=== PATIENT | female | born 1930 | race Caucasian/White ===

== ENCOUNTER 2016-11-01 15:29 | Emergency (ER) | payer MEDICARE, BC ==
[2016-11-01] MEDS ORDERED: TORAdol 30 mg Injection IM ONE (15:31)
[2016-11-01] MEDS ORDERED: Norflex 60 MG/2 ML IM ONE (15:31)
[2016-11-01] MEDS ORDERED: TORAdol 30 mg Injection ONE (15:35)
[2016-11-01] MEDS ORDERED: Norflex 60 MG/2 ML ONE (15:35)
--- NOTE | 2016-11-01 15:37 | ERPHSYRPT ---
- History of Present Illness Time Seen by Provider: 11/01/16 15:31 Source: patient, EMS Exam Limitations: no limitations Physician History: patient developed acute back pain when she got out of bed today; unable to stand due to pain; pain in Left LS area radiating to left hip; no fall; chronic back pain - different; no incontinence or change in bowel or urine Timing/Duration: today Method of Injury: unknown Quality: radiating, sharp, aching Back Pain Location: lumbar spine (left SI ) Back Pain Radiation: upper legs (left) Severity of Pain-Max: severe Severity of Pain-Current: moderate Modifying Factors: Improves With: immobilization (helps), movement ( and standing worsens) Associated Symptoms: lower back pain, No numbness in legs/feet, No weakness, No sensory/motor loss, No tingling in legs/feet Previous symptoms: different symptoms Allergies/Adverse Reactions: cefaclor [From Ceclor] Allergy (Intermediate, Verified 11/01/16 15:41) Rash Penicillins Allergy (Intermediate, Verified 11/01/16 15:41) Rash Sulfa (Sulfonamide Antibiotics) Allergy (Intermediate, Verified 11/01/16 15:41) Rash Home Medications: Amlodipine Besylate 10 mg [Norvasc 10 MG] 10 mg PO DAILY 06/24/13 [History] Aspirin EC 81 mg [Ecotrin 81 mg] 162 mg PO DAILY 06/24/13 [History] Levothyroxine Sodium 75 Mcg [Synthroid 75 Mcg] 75 mcg PO DAILY 06/24/13 [ History] Lisinopril/Hydrochlorothiazide [Lisinopril-Hctz 20-12.5 mg Tab] 1 each PO DAILY 06/24/13 [History] Magnesium Oxide 400 mg [Mag-Ox 400] 400 mg PO DAILY 06/24/13 [History] Metoprolol Succinate 50 mg PO BID 06/24/13 [History] Simvastatin 10 mg PO DAILY 05/26/16 [History] Glimepiride 4 mg [Amaryl 4 mg] 4 mg PO DAILY 11/01/16 [History] Hx Tetanus, Diphtheria Vaccination/Date Given: No Hx Influenza Vaccination/Date Given: Yes Hx Pneumococcal Vaccination/Date Given: Yes - Review of Systems Constitutional: No Symptoms Eyes: No Symptoms Ears, Nose, & Throat: No Symptoms Respiratory: No Cough, No Dyspnea, No Wheezing Cardiac: No Chest Pain, No Palpitations, No Syncope Abdominal/Gastrointestinal: No Abdominal Pain, No Nausea, No Vomiting, No Diarrhea Genitourinary Symptoms: No Symptoms Musculoskeletal: Arthralgias, Back Pain, No Fall, No Injury Skin: No Symptoms Neurological: No Symptoms Psychological: No Symptoms Endocrine: No Symptoms Hematologic/Lymphatic: No Symptoms Immunological/Allergic: No Symptoms - Past Medical History Pertinent Past Medical History: Yes Neurological History: No Pertinent History ENT History: Cataracts Cardiac History: Other Respiratory History: Bronchitis Endocrine Medical History: Diabetes Type II Musculoskeletal History: Osteoarthritis GI Medical History: Diverticulitis History: Kidney Cancer Psycho-Social History: No Pertinent History Female Reproductive Disorders: No Pertinent History Other Medical History: OPEN HEART SURGERY 2002, GALLBLADDER REMOVED; COLON SURGERIES, 1 KIDNEY, APPENDICITIS; - Past Surgical History Past Surgical History: Yes Neuro Surgical History: No Pertinent History Cardiac: CABG Respiratory: No Pertinent History Gastrointestinal: Appendectomy, Cholecystectomy, Colon Resection, Other Genitourinary: Kidney Surgery Musculoskeletal: Orthopedic Surgery Female Surgical History: Hysterectomy Other Surgical History: Ruptured colon, kidney removed, right elbow, bilateral cataract surgery - Social History Smoking Status: Never smoker Exposure to second hand smoke: No Alcohol Use: None Drug Use: none Patient Lives Alone: Yes Significant Family History: no pertinent family hx - Female History Hx Now: No - Physical Exam General Appearance: moderate distress, alert, obese Eye Exam: PERRL/EOMI, eyes nml inspection, No photophobia Ears, Nose, Throat Exam: normal ENT inspection, pharynx normal, moist mucous membranes Neck Exam: normal inspection, non-tender, supple, full range of motion, No meningismus, No JVD Respiratory Exam: normal breath sounds, lungs clear, airway intact, No chest tenderness, No respiratory distress, No crackles/rales, No rhonchi, No wheezing Cardiovascular Exam: regular rate/rhythm, normal heart sounds, normal peripheral pulses, capillary refill 2-3 sec, No murmur Gastrointestinal Exam: soft, normal bowel sounds, No tenderness, No guarding, No rebound, No organomegaly Pelvic Exam: deferred Rectal Exam: deferred Back Exam: normal inspection, No normal range of motion (decreased due to pain) , No CVA tenderness, No vertebral tenderness, No rash Extremity Exam: pelvis stable, limited range of motion ( UPPER EXTREMITY OST OP) , No normal inspection (BRAC ON RIGHT), No normal range of motion (decreased straight leg raising on left 30 degress), No elder's sign, No pedal edema (LEFT LEG DUE TO PAIN IN BACK AND RIGHT ARM DUE TO SPLINT) Peripheral Pulses: carotid (R): 4+, carotid (L): 4+, femoral (R): 4+, femoral (L ): 4+ Neurologic Exam: alert, oriented x 3, cooperative, 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 nml as tested, normal mood/affect Skin Exam: normal color, warm, dry, No rash - Course Nursing assessment & vital signs reviewed: Yes - Radiology Exams L-Spine X-ray Interpretation: Reviewed by me, Teleradiologist Report, Other (DJD and compression fx t12/L2; Sly 2 spondo L5-S1) Ordered Tests: Active Orders 24 hr Category Date Time Status LUMBAR COMPLETE (MIN 4 VIEWS) Stat Exams 11/01/16 15:31 Completed Medication Summary Discontinued Medications Generic Name Dose Route Start Last Admin Trade Name Gregoria PRN Reason Stop Dose Admin Hydromorphone HCl 1 mg 11/01/16 16:32 11/01/16 16:34 Hydromorphone 1 Mg/Ml Ampule IM 11/01/16 16:33 1 mg STAT ONE Administration Hydromorphone HCl Confirm 11/01/16 16:32 Hydromorphone 1 Mg/Ml Ampule Administered 11/01/16 16:33 Dose 1 mg .ROUTE .STK-MED ONE Hydromorphone HCl 1 mg 11/01/16 17:09 11/01/16 17:18 Hydromorphone 1 Mg/Ml Ampule IM 11/01/16 17:10 1 mg STAT ONE Administration Hydromorphone HCl Confirm 11/01/16 17:14 Hydromorphone 1 Mg/Ml Ampule Administered 11/01/16 17:15 Dose 1 mg .ROUTE .STK-MED ONE Ketorolac Tromethamine 30 mg 11/01/16 15:31 11/01/16 15:35 Toradol 30 Mg Injection IM 11/01/16 15:32 30 mg STAT ONE Administration Ketorolac Tromethamine Confirm 11/01/16 15:35 Toradol 30 Mg Injection Administered 11/01/16 15:36 Dose 30 mg .ROUTE .STK-MED ONE Methylprednisolone Acetate 40 mg 11/01/16 17:08 11/01/16 17:18 Depo-Medrol 40 Mg/Ml IM 11/01/16 17:09 40 mg STAT STA Administration Orphenadrine Citrate 60 mg 11/01/16 15:31 11/01/16 15:36 Norflex 60 Mg/2 Ml IM 11/01/16 15:32 60 mg STAT ONE Administration Orphenadrine Citrate Confirm 11/01/16 15:35 Norflex 60 Mg/2 Ml Administered 11/01/16 15:36 Dose 60 mg .ROUTE .STK-MED ONE - Progress Progress: improved, re-examined (after xr and meds) Progress Note: 11/01/16 15:37 will medicate and xr and recheck 11/01/16 16:51 miniml;a releif with meds post xrt; remedicated and more relief but still pain with; XR show DJD; Comp deformity old t12- L2; spondo L5 - S1 11/01/16 17:10 some releif with meds but uncomfortable if moves; discussed treatment plan and will give IM steroid and more pain meds and recheck 11/01/16 18:06 recheck and much improved; minimal discomfort; pain < 3/10; now; was 9/10; treatment plan and instructions given Counseled pt/family regarding: diagnosis, need for follow-up, rad results - Departure Time of Disposition: 18:07 Departure Disposition: Home Clinical Impression: Back pain at L4-L5 level, Sciatic leg pain Condition: Stable Critical Care Time: No Referrals: KAREN BRAN MD [Primary Care Provider] - Instructions: Low Back Pain Additional Instructions: Back pain instructions. Rest, ice x 24-48 hours, then warm compresses; no heavy lifting (>20#'s) x 3-5 days; call [facility] or [facility] Med doctor in am for follow up appointment and or referral as needed. Return if problems. Take meds as prescribed. Follow-up with family doctor as directed. Call for appointment. Return if any problems. If you smoke please stop. Call or follow up with your family doctor for assistance if you need it to stop. Please wear your seatbelt when driving. Have a nice day. Thank you for allowing us to participate in your care today. :o) Dr Jaime Hutson Prescriptions: Hydrocodone/Ibuprofen [Vicoprofen 200-7.5 mg Tab] 1 each PO Q8HPRN PRN #14 tablet PRN Reason: Pain Chlorzoxazone [Parafon Forte Dsc] 500 mg PO QID #20 tablet
[2016-11-01] MEDS ORDERED: Hydromorphone 1 mg/ml Ampule ONE ×2 (16:32→17:14)
[2016-11-01] MEDS ORDERED: Hydromorphone 1 mg/ml Ampule IM ONE ×2 (16:32→17:09)
--- NOTE | 2016-11-01 16:37 | XRAY ---
Indication: Acute back pain. No acute injury. Comparison: None 5 projections of the lumbar spine demonstrates 5 lumbar vertebral segments with age-related osteopenia, mild multilevel degenerative endplate spurring, and remote-appearing T12/L1 endplate compression fractures with less than 25% height loss. Greater L5-S1 degenerative disc disease with bilateral L5 spondylolysis and approximately 1.7 cm L5 spondylolisthesis. Left mid abdomen surgical clips and heavy aortoiliac calcifications. Moderate degenerative changes of the left hip with lesser degree involving the right hip. Impression: 1. Bilateral L5 spondylolysis with grade 2-3 spondylolisthesis. 2. Osteopenia and multilevel degenerative disc disease, greatest at the L5-S1 level. 3. Remote T12/L2 endplate compression fractures. 4. Additional degenerative changes of both hips and heavy vascular calcifications.
[2016-11-01] MEDS ORDERED: Depo-Medrol 40 MG/ML IM STA (17:08)
[2016-11-01 17:24] VITALS: O2SAT 94
[2016-11-01 18:45] VITALS: BP 148/69; PULSE 48
== END 2016-11-01 18:45 | disposition home or self-care (01) ==
LOC: ED 15:29
DX: M54.5 Low back pain (principal); M54.32 Sciatica, left side
CPT/HCPCS: 72110; 96372; 99284; J1030; J1170; J1885; J2360

== ENCOUNTER 2016-11-03 14:57 | Observation (INO) | payer MEDICARE, BC ==
[2016-11-03] MEDS ORDERED: TYLENOL 325 MG PO PRN (17:11)
[2016-11-03 17:24] LABS: BASOPHIL % 0.2 % (0.0-0.4); Eosinophil % 1.9 % (0.00-5.0); Granulocytes % 54.9 % (36.0-66.0); Lymphocytes % 36.3 % (24.0-44.0); Mean Cell Volume 93.7 fl (78-100); Mean Corpuscular Hemoglobin 31.7 pg (26-32); Mean Platelet Volume 9.6 fl (6-9.5); Monocytes % 6.7 % (0.0-12.0); Platelet Count 161 K/mm3 (150-450); Red Blood Count 4.41 M/mm3 (4.1-5.4); Red Cell Distribution Width 13.2 % (11.5-14.0); White Blood Count 10.1 K/mm3 (4.0-10.5)
[2016-11-03 17:38] LABS: ALBUMIN 4.1 g/dL (3.4-5.0); ANION GAP 14.2 MEQ/L (5-15); BILIRUBIN,TOTAL 0.7 mg/dL (0.2-1.0); Carbon Dioxide 25.5 mEq/L (21-32); Potassium 3.8 mEq/L (3.5-5.1); Total Protein 7.5 gm/dL (6.4-8.2)
[2016-11-03] MEDS: Sodium Chloride 0.9% 1000 ML 1,000 ML IV SCH (17:48)
[2016-11-03] MEDS ORDERED: HYDROCODONE PO PRN (18:15)
[2016-11-03] MEDS ORDERED: IBUPROFEN PO PRN (18:15)
[2016-11-03] MEDS: MORPHINE SULFATE 2 MG INJ IV PRN (18:45)
[2016-11-03 20:19] LABS: COMPLETE URINE MICROSCOPIC? YES; Collection Type CLEAN CATCH; Ph 8.5 (5-6)
[2016-11-03 20:23] LABS: Bacteria RARE /HPF (NEGATIVE); Epithelial Cells RARE /HPF (FEW); WBC 0-2 /HPF (0-5)
[2016-11-03] MEDS ORDERED: Amaryl 2 MG PO SCH (22:00)
[2016-11-03] MEDS: Colace 100 MG PO SCH (22:14)
[2016-11-03] MEDS: Zocor 10MG PO SCH (22:14)
[2016-11-03] MEDS: PATIENT OWN MEDICATION PO SCH (22:18)
[2016-11-03] MEDS: NovoLOG Insulin SQ PRN (23:00)
[2016-11-04] MEDS: MORPHINE SULFATE 2 MG INJ IV PRN ×2 (02:16→09:22)
[2016-11-04] MEDS: Glucophage 500 MG PO SCH (08:28)
[2016-11-04] MEDS: Amaryl 2 MG PO SCH ×2 (08:28→16:27)
--- NOTE | 2016-11-04 08:47 | XRAY ---
Indication: Left hip pain. No known injury. Comparison: None 2 views of the left hip obtained using portable technique demonstrates osteopenia and moderate/advanced degenerative changes as evidenced by joint space loss, sclerosis, spurring, and femur head remodeling. Query nondisplaced subcapital fracture on the AP view but not confirmed on the other view. CT is recommended.
--- NOTE | 2016-11-04 08:48 | XRAY ---
Indication: Left hip pain. Possible subcapital fracture on same day left hip radiograph. Multiple contiguous axial images obtained through both hips. Sagittal and coronal reformatted images obtained. Comparison: None Osseous structures demineralized consistent with patient's age. No acute fracture or dislocation. There is moderate to advanced degenerative changes of the left hip with joint space loss, sclerosis/spurring, subcortical cysts, femur head bony remodeling, and prominent osteophytes. Right hip demonstrates lesser moderate degenerative changes. Lower lumbar spine demonstrates L5-S1 degenerative disc disease, bilateral L5 spondylolysis, and 9 mm L5 spondylolisthesis. Visualized noncontrasted soft tissues demonstrates moderate scattered colonic fecal debris, sigmoid diverticulosis, moderate scattered vascular calcifications, and left abdominal wall ventral hernia defect with protrusion of small bowel. Impression: 1. Negative for acute fracture/dislocation. 2. Osteopenia and degenerative changes of both hips, left greater than right. 3. L5-S1 degenerative disc disease with bilateral L5 spondylolysis and grade 1 spondylolisthesis. 4. Incidental fecal stasis, sigmoid diverticulosis, and left ventral hernia defect. CT DI 46.01
[2016-11-04] MEDS: hydroDIURIL 25 MG PO SCH (09:23)
[2016-11-04] MEDS: MAG-OX 400 PO SCH (09:23)
[2016-11-04] MEDS: ENOXAPARIN SODIUM SQ SCH (09:23)
[2016-11-04] MEDS: Zestril 10 MG PO SCH (09:24)
[2016-11-04] MEDS: ECOTRIN 81 MG PO SCH (09:24)
[2016-11-04] MEDS: Toprol Xl 50 MG PO SCH (09:25)
[2016-11-04] MEDS: NORVASC 5 MG PO SCH (09:25)
[2016-11-04] MEDS: SYNTHROID 75 MCG PO SCH (09:25)
[2016-11-04] MEDS: Calcium 500MG W/Vit D Tablet PO SCH (09:25)
[2016-11-04] MEDS: Zestril 20 MG PO SCH (09:25)
[2016-11-04] MEDS: PATIENT OWN MEDICATION PO SCH ×4 (09:26→22:33)
[2016-11-04] MEDS ORDERED: CALCIUM CARBONATE PO SCH (10:00)
[2016-11-04] MEDS ORDERED: VITAMIN D3 PO SCH (10:00)
[2016-11-04] MEDS ORDERED: NON-FORMULARY ITEM (Lisinopril/Hydrochlorothiazide [Lisinopril-Hctz 20-12.5 Mg Tab] 1 EACH PO SCH (10:00)
[2016-11-04] MEDS ORDERED: NON-FORMULARY ITEM (Amlodipine Besylate 10 Mg [Norvasc 10 Mg] 10 MG) PO SCH (10:00)
[2016-11-04] MEDS: DILAUDID 1 MG/1ML PCA IV PRN (11:01)
--- NOTE | 2016-11-04 11:03 | PROG NOTE ---
DATE: 11/04/16 Chart reviewed. Events noted. At the time of this evaluation, patient is alert and awake. She states she continues to have persistent pain in her left hip. Also, complaining of pain in left lower back. She rates her pain as 8/10. Denies any numbness in leg. History of remote back injury several years ago. Reportedly, patient had also fallen at home due to her left leg giving out. States her left hip pain is constant, even at rest. VITALS: BP 159/69, heart rate 50, respiratory rate 18, temperature 97.5, O2 saturations of 94% on room air. HEENT: No pallor or icterus is noted. NECK: No JVD is present. CVS: S1 and S2 present. RESPIRATORY: Breath sounds bilaterally diminished. ABDOMEN: Obese, soft, nontender. NEURO: She is alert and awake, answers simple questions appropriately. Follows simple commands appropriately. EXTREMITIES: Reveals no edema on bilateral lower extremities. Pedal pulses are present in left lower extremity. Examination of left hip reveals tenderness, limited and very painful range of motion. Examination of lower back reveals tenderness to percussion on lumbosacral spinal and left lumbosacral paraspinal area. Lumbosacral muscle spasm is present on left. LABORATORY DATA: Labs from 11/03/16 were essentially unremarkable except CMP with creatinine of 1.43. UA had shown trace WBC, rare epithelial cells, rare bacteria, glucose 100. X-ray of left hip from last night showed joint space loss, sclerosis, spurring, and femur head remodeling. Questionable nondisplaced subcapital fracture on AP view, but not confirmed. CT scan of left hip was negative for acute fracture/dislocation. Osteopenia and degenerative changes in both hips, left greater than right. L5-S1 disc degenerative disease with bilateral L5 spondylosis and grade I spondylolisthesis. Medications were reviewed. ASSESSMENT: 85 y/o woman with impression: 1. INTRACTABLE LEFT HIP PAIN. 2. INTRACTABLE LOW BACK PAIN. 3. HISTORY OF DIABETES MELLITUS. 4. HYPERTENSION/CORONARY ARTERY DISEASE. 5. HYPOTHYROIDISM. 6. OBESITY. PLAN: 1. Patient is admitted for further monitoring and management. Patient will continue analgesics. Increase in view of persistent pain. Orthopedic consultation has been requested. PT/OT evaluations have been requested. 2. Will obtain CT scan of lumbosacral spine. 3. Addition of antibiotics for urinary tract infection. Patient's clinical condition, work-up results, and plan of management were discussed with patient and her son and [id number]. Their questions were answered in detail. They seem to be in understanding of discuss and are in agreement of current treatment plan. Discussed with patient's nurse
--- NOTE | 2016-11-04 14:00 | XRAY ---
Indication: Severe low back pain radiating to left hip. No known injury. Sagittal and axial MRI lumbar spine performed without contrast using T1 and T2 weighted sequences. Impression: None Lumbar radiograph dated November 01, 2016 documents 5 lumbar vertebral segments. Sagittal images demonstrates multilevel degenerative disc desiccation signal with L5-S1 disc space narrowing. Bilateral L5 spondylolysis with 10 mm anterolisthesis. Lower thoracic segments demonstrates multiple small Schmorl nodes. T12 and L1 superior endplates demonstrates concave deformity either remote endplate fracture versus large Schmorl node. T11 and L3 segments demonstrate large vertebral hemangiomas. Tiny L1 and multiple sacral hemangiomas. The T10 vertebral body demonstrates 12 mm round bony lesion posteriorly on the left that is low signal on T1 and T2 sequences and possibly involves the pedicle warrants additional imaging. Conus medullaris terminates at the T12 level. Axial images at the L05-Y2-S2 levels demonstrates minimal broad-based disc bulge minimally effacing the thecal sac. No disc herniation, spinal canal, or foraminal stenosis. Facets are symmetric. Sagittal images at the L2-L3 level demonstrates mild base disc bulge minimally effacing the thecal sac and producing bilateral foraminal narrowing. No focal disc herniation or canal stenosis. Axial images at the L3-L4 level demonstrates mild annular disc bulge greater towards the left. Thecal sac minimally effaced. Left foraminal stenosis and right foraminal narrowing. Slight impingement of the exiting left L3 nerve root. Mild bilateral degenerative facet and ligamentum flavum hypertrophy minimally effacing the thecal sac. Axial images at the L4-L5 level demonstrates minimal annular disc bulge minimally effacing the thecal sac and producing bilateral foraminal stenosis without impingement. No central disc herniation or canal stenosis. Minimal bilateral degenerative facet and ligamentum flavum hypertrophy. At the L5-S1 level, there is bilateral foraminal stenosis with bilateral L5 nerve root impingement due to combination of grade 1-2 spondylolisthesis and broad-based disc bulge. No disc herniation or canal stenosis. Mild bilateral degenerative facet and ligamentum flavum hypertrophy. Impression: 1. Multilevel degenerative disc disease detailed level by level. Greatest extent at L5-S1 level where there is bilateral foraminal stenosis with bilateral L5 nerve root impingement due to combination of bilateral L5 spondylolysis, grade 1-2 spondylolisthesis, and broad-based disc bulge. 2. Remaining lumbar spine negative for disc herniation or canal stenosis. 3. T10 segment bony lesion that is low signal on T1 and T2 weighting. Metastatic lesion not completely excluded in the right clinical setting. MRI thoracic spine with contrast exam may yield further information. 4. Incidental multilevel vertebral hemangiomas and multilevel thoracolumbar Schmorl nodes. T12 and L1 superior endplate concave deformities either remote endplate fracture versus large Schmorl node.
[2016-11-04] MEDS: Macrobid 100MG Capsule PO SCH (16:27)
[2016-11-04] MEDS ORDERED: Marcaine 0.5% SDV 10 ML IJ ONE (17:45)
[2016-11-04] MEDS ORDERED: Kenalog-40 IJ ONE (17:45)
[2016-11-04] MEDS: Zocor 10MG PO SCH (22:33)
[2016-11-04] MEDS: Colace 100 MG PO SCH (22:33)
[2016-11-05] MEDS ORDERED: DILAUDID 2 MG INJECTION IV PRN (00:12)
[2016-11-05] MEDS: DILAUDID 1 MG/1ML PCA IV PRN (00:29)
[2016-11-05 06:19] LABS: ANION GAP 11.9 MEQ/L (5-15); Carbon Dioxide 23.3 mEq/L (21-32); MAGNESIUM 1.7 mg/dL (1.8-2.4); TROPONIN 0.029 ng/ml (0.000-0.056)
[2016-11-05] MEDS: Macrobid 100MG Capsule PO SCH ×2 (08:15→18:19)
[2016-11-05] MEDS: Amaryl 2 MG PO SCH ×2 (08:15→18:19)
[2016-11-05] MEDS: Glucophage 500 MG PO SCH (08:15)
[2016-11-05] MEDS: NORVASC 5 MG PO SCH (10:10)
[2016-11-05] MEDS: Toprol Xl 50 MG PO SCH (10:10)
[2016-11-05] MEDS: Zestril 20 MG PO SCH (10:13)
[2016-11-05] MEDS: SYNTHROID 75 MCG PO SCH (10:13)
[2016-11-05] MEDS: ENOXAPARIN SODIUM SQ SCH (10:13)
[2016-11-05] MEDS: MAG-OX 400 PO SCH (10:13)
[2016-11-05] MEDS: hydroDIURIL 25 MG PO SCH (10:13)
[2016-11-05] MEDS: Calcium 500MG W/Vit D Tablet PO SCH (10:13)
[2016-11-05] MEDS: ECOTRIN 81 MG PO SCH (10:13)
[2016-11-05] MEDS: Zestril 10 MG PO SCH (10:13)
[2016-11-05] MEDS: PATIENT OWN MEDICATION PO SCH ×3 (10:14→18:18)
[2016-11-05] MEDS: NovoLOG Insulin SQ PRN (11:47)
[2016-11-05] MEDS: Sodium Chloride 0.9% 1000 ML 1,000 ML IV SCH (11:47)
--- NOTE | 2016-11-05 14:09 | CONS ---
CONSULT DATE: 11/04/16 CONSULTING PHYSICIAN: Dr. Martinez. CONSULTED PHYSICIAN: Dr. Morocho. REASON FOR CONSULT: Left hip pain. HISTORY OF PRESENT ILLNESS: Patient is an 85 y/o WF with sudden onset of weight-bearing pain with left-sided hip, thigh, and lumbar spine. She has got x-rays and imaging studies both of the back and the left hip that are notable for arthritis, degenerative disc disease, and some kyphosis and collapse of the lumbosacral elements and additionally a gross femoral head collapse, degeneration, loss of sphericity of the head of the femur. On exam, internal/external rotation of the hip and abduction is tolerable, but painful. Leg lengths are equal and neurovascular status is intact. Pain and tenderness palpated around the femoral acetabular articular and the upper portion of the pelvis and the SI joint is also notable. IMPRESSION: 1. 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 2. CONSIDER NERVE PINCHING OR MODIFIED SCIATICA OF THE UPPER LUMBAR SPINE SECONDARY TO ARTHRITIC RELATED SPINAL STENOSIS. 3. BLUNT TRAUMA AND REACTIVE EDEMA AND OSTEOPENIA AND OSTEOPOROSIS LEFT HEMIPELVIS. PLAN: I have injected with Kenalog and Marcaine today 2 and 3 cc each with a 3" spinal needle. The patient tolerated it well and will allow her to start to ambulate and transfer and gait as well as she can. If no better or can't handle it, will get her hip replaced and we have had a discussion about this today. Otherwise, expect blood sugars to go up a little bit and I have spoken to Monet Jensen about ambulation protocol.
[2016-11-05 16:17] VITALS: BP 153/70; PULSE 57; O2SAT 95
[2016-11-05] MEDS ORDERED: MAG-OX 400 PO ONE (17:16)
--- NOTE | 2016-11-08 09:17 | DS ---
DISCHARGE DIAGNOSES: 1) INTRACTABLE LEFT HIP PAIN, CLINICALLY IMPROVED. 2) INTRACTABLE LOW BACK PAIN, CLINICALLY IMPROVED. 3) DIABETES MELLITUS. 4) BRADYCARDIA, CLINICALLY ASYMPTOMATIC. 5) HYPERTENSION/CORONARY ARTERY DISEASE. 6) HYPOTHYROIDISM. 7) OBESITY. CONSULTANTS ON CASE: Dr. Abdirahman Morocho, Orthopedics. HOSPITAL COURSE: Poonam Bridges is an 85 year-old female with past medical history of hypertension, coronary artery disease, hypothyroidism, diabetes mellitus and back pain. She was seen by Dr. Chao in office with intractable left hip pain and was admitted for further work up and management of the same. Initially she was placed on p.o. as well as IV analgesic. Left hip x-ray from 11/03/2016 showed portable x-ray osteopenia, moderate/advanced degenerative changes as evidenced by joint space loss, sclerosis, spurring and femur head remodeling. Query nondisplaced subcapital fracture on AP view. CT scan of left hip done the same night was negative for acute fracture or dislocation, osteopenia, degenerative changes of both hips left greater than right, L5-S1 degenerative disc disease with bilateral L5 spondylosis and grade I spondylolisthesis. At the time of my evaluation yesterday the patient had also complained of persistent left hip pain and also pain in left lower back. Additional studies were ordered. Lab work up from 11/03/2016 was essentially unremarkable except CMP with creatinine 1.43. UA showed trace white blood cell, rare epithelial cells, and rare bacteria. Glucose of 100. She was placed on p.o. antibiotics. Also MRI of lumbosacral spine was obtained yesterday and that had shown multilevel degenerative disc disease greatest at L5-S1 with bilateral foraminal narrowing, bilateral L5 nerve root impingement due to combination of bilateral nerve root impingement. Remaining lumbar spine negative for disc herniation or canal stenosis. T10 segment of bony lesion with low signal questionable metastatic lesion, multilevel vertebral hemangioma and multilevel thoracolumbar Schmorl nodes. T12-L1 superior endplate concave deformities either remote endplate fracture versus large Schmorl node. The patient was evaluated by orthopedics yesterday and underwent steroid injection yesterday. With that the patient's pain had improved. Also physical therapy has been ordered. In view of above lumbar spine MRI findings, thoracic spine MRI was requested however due to this being weekend, that will not be available until 11/07/2016. Additionally last night the patient was noted to have bradycardia with heart rate in 30's on her monitor. She remained asymptomatic from that and her blood pressure had remained stable. Her [employer] was discontinued. Also beta blockers were held. Eventually her bradycardia had resolved. The rest of her course was essentially more or less unremarkable. She improved clinically. Her strength seems to be improving with current medication management. PHYSICAL EXAMINATION: At the time of this evaluation she is alert, awake and comfortable. She states her low back pain/left hip pain has improved. VITAL SIGNS: Blood pressure 153/70, heart rate 57, respiratory rate 17, temperature 97.6F. Oxygen saturation 95% on room air. HEENT: Pallor or icterus is noted. NECK: No JVD is present. CVS: S1, S2 present. RESPIRATORY: Breath sounds are bilaterally diminished and clear to auscultation. ABDOMEN: Obese, soft, nontender. NEURO: She is alert, awake, answers simple questions. EXTREMITIES: No edema on bilateral lower extremities. Limited examination of lower back reveals mild tenderness to percussion on left lumbosacral paraspinal area. Left hip movement is still somewhat painful. LABORATORY DATA AND TESTS: Labs from today showed unremarkable BMP. Magnesium is 1.7. Troponin is 0.029. Medications were reviewed. ASSESSMENT: As outlined in discharge diagnosis. PLAN: The patient was admitted with intractable low back pain, left hip pain. Her work up has been detailed above. She was evaluated by orthopedics and additional treatment. Orthopedics had recommended physical therapy which will be done as outpatient. The patient's insurance will not pay any additional days for stay here. Also the patient's information given to me by nursing and shelter case manager, the patient does not meet inpatient criteria and will need to be discharged per insurance. Will ambulate the patient. Orthopedics has advised continuation of current conservative management including physical therapy as outpatient. This has been discussed with patient. Will ambulate the patient and likely discharge home if she manages that okay. Per orthopedic recommendation we will await response to her steroid injection and additional work up/treatment will be planned as outpatient. Also as noted above, the patient's thoracic spine MRI could not be obtained and that will be scheduled as outpatient. The patient was advised to follow with that. The patient lives alone and home care is being arranged upon discharge. As noted above, the patient does not meet criteria for swing-bed at this time per shelter case manager. Please refer to discharge medication list from 11/05/2016 for details of medications on discharge. I have advised the patient to follow up with Dr. Chao in office in the next three to four days. Compliance with diet and medications were stressed. She will continue to follow up with orthopedic as well as physical therapy appointment as scheduled. She was advised to return to the Emergency [facility] if any new signs and symptoms or reappearance of previous signs and symptoms are noted. Additionally in view of the patient's bradycardia, I have discontinued the patient's beta blockers. We will continue to monitor that. As noted earlier, the patient does remain asymptomatic from that. If symptoms recur, will likely obtain additional work up and cardiology referral and work up outpatient. The patient's clinical condition, work-up results and plan of management were discussed with patient and her family. They seem to be in understanding and agreement of the same. Discussed with patient's nurse.
== END 2016-11-05 18:57 | disposition home health service (06) ==
LOC: MED SURG 14:57
PROVIDERS: ADMIT General Practice; ATTEND General Practice
DX: M25.552 Pain in left hip (principal); M54.5 Low back pain; E11.65 Type 2 diabetes mellitus with hyperglycemia; R00.1 Bradycardia, unspecified; I10 Essential (primary) hypertension; I25.810 Atherosclerosis of coronary artery bypass graft(s) without angina pectoris; E03.9 Hypothyroidism, unspecified; E66.9 Obesity, unspecified; E78.5 Hyperlipidemia, unspecified; K21.9 Gastro-esophageal reflux disease without esophagitis; I48.91 Unspecified atrial fibrillation; M15.9 Polyosteoarthritis, unspecified; M16.9 Osteoarthritis of hip, unspecified; Z79.899 Other long term (current) drug therapy
CPT/HCPCS: 82962 ×3; 93268; 81000; 36415 ×2; 83880; 83735; 85025; 80048; 80053; 84484; 73502; 73700; 72148; 97161; A9270 ×30; G0378; J1170; J1650; J2270; J3301

== ENCOUNTER 2016-11-08 08:42 | Inpatient (IN) | payer MEDICARE, BC ==
[~2016-11-08 08:42] MED LIST: ATROPINE SULFATE 1MG IJ ONE; Amidate 20 MG/10 ML IV ONE; CLINDAMYCIN-D5W 900 MG/50 ML*** 50 ML IV ONE; DILAUDID 2 MG INJECTION IV ONE; OFIRMEV 100 ML IV ONE; PHENYLEPHRINE HCL IJ ONE; Pepcid 20 MG VIAL IV ONE; Quelicin Fliptop 200 MG/10 ML IJ ONE; SUBLIMAZE 250 MCG/5 ML IJ ONE; Versed 2 MG/2 ML Injection IV ONE; Zemuron 100 MG/10 ML IJ ONE; Zofran 4 MG/2 ML VIAL IV ONE
[2016-11-08] MEDS: Lactated Ringers 1,000 ML IV SCH ×2 (09:21→22:21)
--- NOTE | 2016-11-08 10:07 | XRAY ---
Indication: Preop exam for total hip replacement. Comparison: November 03, 2016. AP pelvis and 2 views of the left hip unchanged again with osteopenia, scattered vascular calcifications, lower lumbar degenerative changes, and moderate/advanced bilateral hip degenerative changes again left greater than right. No new/acute findings.
[2016-11-08] MEDS ORDERED: PHENYLEPHRINE HCL 10 MG in Dextrose 5%/Water IV Soln. 250 ML 250 ML IV SCH (11:30)
[2016-11-08] MEDS ORDERED: Lactated Ringers 1,000 ML IV ONE (12:46)
[2016-11-08] MEDS ORDERED: SUBLIMAZE 100 MCG/2 ML ONE (13:27)
--- NOTE | 2016-11-08 14:03 | OP ---
SURGERY DATE/TIME: 11/08/2016 1050 PREOPERATIVE DIAGNOSES: 1) Left hip degenerative joint disease. 2) Intractable pain left hip. POSTOPERATIVE DIAGNOSES: 1) Left hip degenerative joint disease. 2) Intractable pain left hip. PROCEDURES: 1) Left total hip arthroplasty. 2) Long leg splint. 3) X-ray per surgeon. 4) Admit status. SURGEON: Abdirahman Morocho D.O. POLITICAL SCIENTIST: None. ANESTHESIA: General per Tan Rojas CRNA. ESTIMATED BLOOD LOSS: 100. DESCRIPTION OF PROCEDURE: The patient is taken to the operative suite and placed in supine position, given a general anesthetic, turned right side down and left side up. Sterile prep and drape done to the back. Sterile air filtration suits were used. A de oliveira bag was placed for the hip to control positioning and then a curvilinear incision over the anterior lateral portion of the hip with anterior lateral approach was done in typical Lombardo-Shaffer approach through iliotibial band through the abductor musculature reflecting this superiorly, placing of Charnley retractor. Capsulotomy performed. The femoral head was identified and was removed with an oscillating saw. The head was then removed and remanded to pathology for pathologic inspection. It measured about 46 to 48 mm in diameter but it was oblong and misshapen and deformed. We began reaming with 46 on up to 52 mm cup. The reaming was done with abduction at 45 degrees and about 5 to 20 degrees of external rotation. Once abduction of about 45 degrees and anteversion of 5 to 10 degrees we then positioned the cup for permanent titanium [place] cup placed 52 mm shell and with two separate drill holes 4.5 mm fully threaded 25 and 30 mm length screws with 10 mm liner was impacted into position and we moved on to the proximal femur. The proximal femur was then adducted forward flexed and externally rotated over a captured hip bag and trochanteric reaming box chisel and broaches up into a #8 setting, impaction with #8. Implant was performed. A +5 mm trunnion neck length femoral bipolar head was chosen. Once the reduction was obtained the hip was forward flexed, externally rotated and adducted and the closure with interrupted Ethibond and the abductor musculature, gluteus medius, gluteus minimus Ethibond in the iliotibial band, 0 Vicryl in subcutaneous layer, ck in the skin over a suction drain and abduction long leg splint applied. Finally the x-rays had been reviewed intraoperatively finding neck length of medial acetabular wall and the fill of the cortical surface of the canal of the femur. Postoperative x-rays were also compared with these and looked good.
--- NOTE | 2016-11-08 14:20 | XRAY ---
Indication: Postop exam. Comparison: Taken earlier in the day. 2 views of the left hip obtained using portable technique demonstrates interval total hip arthroplasty with intact bipolar prosthesis and 2 acetabular screws. Soft tissue changes, drainage tubing, and cutaneous ck attest to recent surgery. Stable osteopenia, scattered vascular calcifications, and inguinal surgical clips.
[2016-11-08] MEDS ORDERED: Zofran 4 MG/2 ML VIAL IV PRN (14:40)
[2016-11-08] MEDS ORDERED: NORCO 5/325 MG PO SCH (15:00)
[2016-11-08] MEDS: Morphine PCA 1 MG/ML 30 ML IV PRN (15:55)
[2016-11-08] MEDS: Macrobid 100MG Capsule PO SCH (18:01)
[2016-11-08] MEDS: CLINDAMYCIN-D5W 600 MG/50 ML*** 50 ML IV SCH (22:32)
[2016-11-08] MEDS: Zocor 10MG PO SCH (22:33)
[2016-11-08] MEDS: Colace 100 MG PO SCH (22:33)
[2016-11-08] MEDS: AMARYL 4 MG PO SCH (22:39)
[2016-11-09] MEDS: CLINDAMYCIN-D5W 600 MG/50 ML*** 50 ML IV SCH (05:31)
[2016-11-09 05:42] LABS: Mean Cell Volume 97.2 fl (78-100); Mean Platelet Volume 9.4 fl (6-9.5); Platelet Count 133 K/mm3 (150-450); Red Cell Distribution Width 13.5 % (11.5-14.0); White Blood Count 8.6 K/mm3 (4.0-10.5)
[2016-11-09 05:45] LABS: Mean Corpuscular Hemoglobin 32.1 pg (26-32)
[2016-11-09] MEDS: Morphine PCA 1 MG/ML 30 ML IV PRN ×2 (06:15→12:30)
[2016-11-09] MEDS: AMARYL 4 MG PO SCH ×2 (08:25→21:04)
[2016-11-09] MEDS: Macrobid 100MG Capsule PO SCH ×2 (08:25→17:04)
[2016-11-09] MEDS: Glucophage 500 MG PO SCH (08:28)
[2016-11-09] MEDS: hydroDIURIL 25 MG PO SCH (08:28)
[2016-11-09] MEDS: Zestril 20 MG PO SCH (08:28)
[2016-11-09] MEDS: Calcium 500MG W/Vit D Tablet PO SCH (08:28)
[2016-11-09] MEDS: ENOXAPARIN SODIUM SQ SCH (08:29)
[2016-11-09] MEDS: SYNTHROID 75 MCG PO SCH (08:29)
[2016-11-09] MEDS: NORVASC 5 MG PO SCH (08:29)
[2016-11-09] MEDS: MAG-OX 400 PO SCH (08:29)
[2016-11-09] MEDS ORDERED: NON-FORMULARY ITEM (Amlodipine Besylate 10 Mg [Norvasc 10 Mg] 10 MG) PO SCH (10:00)
[2016-11-09] MEDS ORDERED: VITAMIN D3 PO SCH (10:00)
[2016-11-09] MEDS ORDERED: Zestril 10 MG PO SCH (10:00)
[2016-11-09] MEDS ORDERED: NON-FORMULARY ITEM (Lisinopril/Hydrochlorothiazide [Lisinopril-Hctz 20-12.5 Mg Tab] 1 EACH PO SCH (10:00)
[2016-11-09] MEDS ORDERED: CALCIUM CARBONATE PO SCH (10:00)
[2016-11-09] MEDS ORDERED: NovoLOG Insulin SQ PRN (14:15)
[2016-11-09] MEDS ORDERED: PREVNAR 13 SYRINGE IM ONE (16:45)
[2016-11-09] MEDS: Lactated Ringers 1,000 ML IV SCH (17:03)
[2016-11-09] MEDS: Zocor 10MG PO SCH (21:04)
[2016-11-09] MEDS: Colace 100 MG PO SCH (21:04)
[2016-11-10] MEDS: Macrobid 100MG Capsule PO SCH ×2 (07:37→16:59)
[2016-11-10] MEDS: Lactated Ringers 1,000 ML IV SCH (07:40)
[2016-11-10] MEDS: Calcium 500MG W/Vit D Tablet PO SCH (09:23)
[2016-11-10] MEDS: NORVASC 5 MG PO SCH (09:23)
[2016-11-10] MEDS: AMARYL 4 MG PO SCH ×2 (09:24→21:25)
[2016-11-10] MEDS: Glucophage 500 MG PO SCH (09:24)
[2016-11-10] MEDS: MAG-OX 400 PO SCH (09:25)
[2016-11-10] MEDS: SYNTHROID 75 MCG PO SCH (09:25)
[2016-11-10] MEDS: hydroDIURIL 25 MG PO SCH (09:25)
[2016-11-10] MEDS: Zestril 20 MG PO SCH (09:26)
[2016-11-10] MEDS: ENOXAPARIN SODIUM SQ SCH (09:26)
[2016-11-10] MEDS ORDERED: Cleocin Phosphate IV 600 MG/4 ML IV SCH (16:15)
[2016-11-10] MEDS: CLINDAMYCIN-D5W 600 MG/50 ML*** 50 ML IV SCH ×2 (16:58→21:25)
[2016-11-10] MEDS: Morphine PCA 1 MG/ML 30 ML IV PRN (18:55)
[2016-11-10] MEDS ORDERED: NORCO 5/325 MG PO PRN (19:37)
[2016-11-10] MEDS: Colace 100 MG PO SCH (21:24)
[2016-11-10] MEDS: Zocor 10MG PO SCH (21:25)
[2016-11-10] MEDS ORDERED: Zestril 10 MG PO SCH (22:00)
[2016-11-11] MEDS: Lactated Ringers 1,000 ML IV SCH (00:38)
[2016-11-11] MEDS: CLINDAMYCIN-D5W 600 MG/50 ML*** 50 ML IV SCH (06:22)
[2016-11-11] MEDS: Macrobid 100MG Capsule PO SCH (08:32)
[2016-11-11] MEDS ORDERED: Ecotrin 325 MG PO SCH (10:00)
[2016-11-11] MEDS: SYNTHROID 75 MCG PO SCH (10:51)
[2016-11-11] MEDS: Glucophage 500 MG PO SCH (10:52)
[2016-11-11] MEDS: MAG-OX 400 PO SCH (10:52)
[2016-11-11] MEDS: NORVASC 5 MG PO SCH (10:53)
[2016-11-11] MEDS: Zestril 20 MG PO SCH (10:54)
[2016-11-11] MEDS: Calcium 500MG W/Vit D Tablet PO SCH (10:54)
[2016-11-11] MEDS: AMARYL 4 MG PO SCH (10:58)
[2016-11-11] MEDS: hydroDIURIL 25 MG PO SCH (10:58)
[2016-11-11] MEDS ORDERED: VENELEX OINTMENT TP SCH (11:15)
[2016-11-11 13:11] VITALS: BP 125/59; PULSE 67; O2SAT 94
--- NOTE | 2016-11-11 14:28 | PROG NOTE ---
DATE: 11/11/16 Chart reviewed. Events noted. At the time of this evaluation, the patient is alert, awake, and comfortable. States her left hip pain is doing fairly well. Complains of constipation. VITALS: BP 126/84, heart rate 73, respiratory rate 14, temperature 98.8, O2 saturation 92%. HEENT: Pallor present. No icterus noted. NECK: No JVD present. CVS: S1 and S2 present. RESPIRATORY: Breath sounds bilaterally diminished and clear to auscultation anteriorly. ABDOMEN: Obese, soft, nontender. NEURO: She is alert and awake. Answers simple questions. EXTREMITIES: Reveals no edema on bilateral lower extremities. Left hip area dressing present. LABORATORY DATA: There were no new labs today. ASSESSMENT: 85 y/o woman with impression: 1. DEGENERATIVE JOINT DISORDER OF LEFT HIP STATUS POST LEFT HIP ARTHROPLASTY. 2. HISTORY OF HYPERTENSION/CORONARY ARTERY DISEASE. 3. DIABETES MELLITUS. 4. LOW BACK PAIN - IMPROVED. 5. HISTORY OF HYPOTHYROIDISM. 6. HYPERLIPIDEMIA. PLAN: 1. Patient underwent scheduled surgery as noted earlier during the week. Postoperatively, she is doing fairly well. Orthopedic follow-up was noted. 2. Will continue physical therapy. 3. Continue to monitor labs. Patient is being discharged to Swing Bed today. Patient's clinical condition, work-up results, and plan of management were discussed with her. She seems to be in understanding and agreement.
--- NOTE | 2016-11-18 17:32 | PCM.DS ---
Discharge Summary Date of Admission: 11/08/16 08:42 Admitting Physician: ISAAC GILMORE Consults: Consults on Case 11/08/16 15:00 Consult Physician ROUTINE Primary Care Provider: KAREN BRAN Allergies Allergies cefaclor [From Ceclor] Allergy (Intermediate, Verified 11/08/16 09:55) Rash Penicillins Allergy (Intermediate, Verified 11/08/16 09:55) Rash Sulfa (Sulfonamide Antibiotics) Allergy (Intermediate, Verified 11/08/16 09:55) Rash atorvastatin [From Lipitor] Adverse Reaction (Verified 11/08/16 09:55) carvedilol [From Coreg] Adverse Reaction (Verified 11/08/16 09:55) rosuvastatin [From Crestor] Adverse Reaction (Verified 11/08/16 09:55) Hospital Summary - Hospital Course Hospital Course: Chief Complaint Diagnosis post op hip replacement Allergies Allergy/AdvReac Type Severity Reaction Status Date / Time cefaclor [From Ceclor] Allergy Intermediate Rash Verified 11/08/16 09:55 Penicillins Allergy Intermediate Rash Verified 11/08/16 09:55 Sulfa (Sulfonamide Allergy Intermediate Rash Verified 11/08/16 09:55 Antibiotics) atorvastatin [From Lipitor] AdvReac Verified 11/08/16 09:55 carvedilol [From Coreg] AdvReac Verified 11/08/16 09:55 rosuvastatin [From Crestor] AdvReac Verified 11/08/16 09:55 Current Medications Discontinued Medications Generic Name Dose Route Start Last Admin Trade Name Freq PRN Reason Stop Dose Admin Acetaminophen/Hydrocodone Bitart 1 tab 11/08/16 15:00 [place] 5/325 Mg PO 11/13/16 14:59 TIDPRN GIL Acetaminophen/Hydrocodone Bitart 1 tab 11/10/16 19:37 11/11/16 10:26 [place] 5/325 Mg PO 11/15/16 19:36 1 tab Q6H PRN PRN Administration PAIN Amlodipine Besylate 10 mg 11/09/16 10:00 11/11/16 10:53 Norvasc 5 Mg PO 12/09/16 09:59 10 mg DAILY GIL Administration Aspirin 325 mg 11/11/16 10:00 11/11/16 10:51 Ecotrin 325 Mg PO 12/11/16 09:59 325 mg QAM GIL Administration Atropine Sulfate 1 mg 11/08/16 08:00 Atropine Sulfate 1mg IJ 11/08/16 08:01 .STK-MED ONE Calcium Carbonate 3 tab 11/09/16 10:00 11/11/16 10:54 Calcium 500mg W/Vit D Tablet PO 12/09/16 09:59 3 tab DAILY GIL Administration Docusate Sodium 200 mg 11/08/16 22:00 11/10/16 21:24 Colace 100 Mg PO 12/08/16 21:59 200 mg HS GIL Administration Enoxaparin Sodium 30 mg 11/09/16 10:00 11/10/16 09:26 Enoxaparin Sodium SQ 12/09/16 09:59 30 mg DAILY GIL Administration Etomidate 20 mg 11/08/16 08:00 Amidate 20 Mg/10 Ml IV 11/08/16 08:01 .STK-MED ONE Famotidine 20 mg 11/08/16 08:04 11/08/16 09:21 Pepcid 20 Mg Vial IV 11/08/16 08:05 20 mg 1HRPRIOR ONE Administration Fentanyl Citrate Confirm 11/08/16 13:27 Sublimaze 100 Mcg/2 Ml Administered 11/08/16 13:28 Dose 100 mcg .ROUTE .STK-MED ONE Fentanyl Citrate 250 mcg 11/08/16 08:00 Sublimaze 250 Mcg/5 Ml IJ 11/08/16 08:01 .STK-MED ONE Glimepiride 2 mg 11/08/16 22:00 11/11/16 10:58 Amaryl 4 Mg PO 12/08/16 21:59 2 mg BID GIL Administration Hydrochlorothiazide 12.5 mg 11/09/16 10:00 11/11/16 10:58 Hydrodiuril 25 Mg PO 12/09/16 09:59 12.5 mg QAM IGL Administration Hydromorphone HCl 2 mg 11/08/16 08:00 Dilaudid 2 Mg Injection IV 11/08/16 08:01 .STK-MED ONE Lactated Ringer's 1,000 mls @ 60 mls/hr 11/08/16 08:30 11/11/16 00:38 Lactated Ringers IV 12/08/16 08:29 60 mls/hr .[id number] GIL Administration Clindamycin HCl/Dextrose 50 mls @ 100 mls/hr 11/08/16 08:06 11/08/16 09:21 Clindamycin-D5w 900 Mg/50 Ml IV 11/08/16 08:35 100 mls/hr ONCALLTOOR ONE Administration Heparin Sodium/Sodium Chloride 500 mls @ 10 mls/hr 11/08/16 11:00 11/08/16 20 :56 Heparin-Ns 1,000 Units/500 Ml IV 11/10/16 12:59 Not Given .Q24H GIL Phenylephrine HCl 10 mg/ 251 mls @ 0 mls/hr 11/08/16 11:30 Dextrose IV 12/08/16 11:29 .Q0M GIL Protocol Lactated Ringer's Confirm 11/08/16 12:46 Lactated Ringers Administered 11/08/16 12:47 Dose 1,000 mls @ ud IV .STK-MED ONE Clindamycin HCl/Dextrose 50 mls @ 100 mls/hr 11/08/16 22:00 11/09/16 05:31 Clindamycin-D5w 600 Mg/50 Ml IV 11/09/16 06:29 100 mls/hr Q8HT GIL Administration Acetaminophen 100 mls @ ud 11/08/16 08:00 Ofirmev IV 11/08/16 08:01 .STK-MED ONE Clindamycin HCl/Dextrose 50 mls @ 100 mls/hr 11/10/16 16:30 11/11/16 06:22 Clindamycin-D5w 600 Mg/50 Ml IV 12/10/16 16:29 100 mls/hr Q8HT GIL Administration Insulin Aspart 0 unit 11/09/16 14:15 11/10/16 22:09 Novolog Insulin SQ 12/09/16 14:14 4 unit UD PRN Administration HYPERGLYCEMIA Levothyroxine Sodium 75 mcg 11/09/16 10:00 11/11/16 10:51 Synthroid 75 Mcg PO 12/09/16 09:59 75 mcg DAILY GIL Administration Lisinopril 10 mg 11/09/16 10:00 11/09/16 08:29 Zestril 10 Mg PO 12/09/16 09:59 10 mg DAILY GIL Administration Lisinopril 20 mg 11/09/16 10:00 11/11/16 10:54 Zestril 20 Mg PO 12/09/16 09:59 20 mg DAILY GIL Administration Lisinopril 10 mg 11/10/16 22:00 11/10/16 21:25 Zestril 10 Mg PO 12/09/16 09:59 10 mg HS GIL Administration Magnesium Oxide 400 mg 11/09/16 10:00 11/11/16 10:52 Mag-Ox 400 PO 12/09/16 09:59 400 mg DAILY GIL Administration Metformin HCl 250 mg 11/09/16 10:00 11/11/16 10:52 Glucophage 500 Mg PO 12/09/16 09:59 250 mg DAILY GIL Administration Midazolam HCl 2 mg 11/08/16 08:00 Versed 2 Mg/2 Ml Injection IV 11/08/16 08:01 .STK-MED ONE Morphine Sulfate 0 mg 11/08/16 14:21 11/10/16 18:55 Morphine Ski Tow Operator 1 Mg/Ml 30 Ml IV 11/13/16 14:20 1 mg PRN PRN Administration Nitrofurantoin Macrocrystals 100 mg 11/08/16 18:30 11/11/16 08:32 Macrobid 100mg Capsule PO 12/08/16 18:29 100 mg BIDPC GIL Administration Ondansetron HCl 4 mg 11/08/16 14:40 Zofran 4 Mg/2 Ml Vial IV 12/08/16 14:39 Q4H PRN PRN NAUSEA Ondansetron HCl 4 mg 11/08/16 08:00 Zofran 4 Mg/2 Ml Vial IV 11/08/16 08:01 .STK-MED ONE Phenylephrine HCl 10 mg 11/08/16 08:00 Phenylephrine Hcl IJ 11/08/16 08:01 .STK-MED ONE Pneumococcal 13-Valent Conj Vacc 0.5 ml 11/09/16 16:45 11/09/16 17:18 Prevnar 13 Syringe IM 11/09/16 16:46 0.5 ml .ONCE ONE Administration Rocuronium [place] 30 mg 11/08/16 08:00 Zemuron 100 Mg/10 Ml IJ 11/08/16 08:01 .STK-MED ONE Simvastatin 10 mg 11/08/16 22:00 11/10/16 21:25 Zocor 10mg PO 12/08/16 21:59 10 mg HS GIL Administration Succinylcholine Chloride 80 mg 11/08/16 08:00 Quelicin Fliptop 200 Mg/10 Ml IJ 11/08/16 08:01 .STK-MED ONE - Vitals & Intake/Output Vital Signs: Vital Signs Temperature 98.5 F 11/11/16 12:00 Pulse Rate 67 11/11/16 12:00 Respiratory Rate 20 11/11/16 12:00 Blood Pressure 125/59 11/11/16 12:00 O2 Sat by Pulse Oximetry 94 L 11/11/16 12:00 Oxygen-Last Documented O2 Percentage 2 Liters = 28% - Lab Result Diagrams: 11/09/16 05:08 Micro Results-Entire Visit: Microbiology 11/08/16 11:04 Urine Culture - Final Urine, Void NO GROWTH - Procedures and Test Procedures and Tests throughout Hospitalization: Therapy Orders & Screens 11/08/16 08:42 PT Eval & Treat (MD Order) ROUTINE Evaluate: Yes Treat: Yes Reason for Eval:: total left hip- partial weight bearing and walker training daily Diagnosis: post op hip replacement 11/08/16 15:00 Incentive Spirometry Assessmen TID Comment: Diagnosis: post op left hip 11/09/16 07:04 Oxygen NASAL CANNULA 2 lpm Comment: Diagnosis: post op hip replacement Discharge Exam General Appearance: no apparent distress, alert Neurologic Exam: alert, oriented x 3, cooperative, normal mood/affect, nml cerebellar function, sensation nml, No motor deficits Skin Exam: normal color, warm, dry Eye Exam: PERRL, EOMI, eyes nml inspection Ears, Nose, Throat Exam: normal ENT inspection, pharynx normal, moist mucous membranes Neck Exam: normal inspection, non-tender, supple, full range of motion Respiratory Exam: normal breath sounds, lungs clear, No respiratory distress Cardiovascular Exam: regular rate/rhythm, normal heart sounds Gastrointestinal/Abdomen Exam: soft, No tenderness, No mass Extremity Exam: normal inspection, normal range of motion Back Exam: normal inspection, normal range of motion, No CVA tenderness, No vertebral tenderness Pelvic Exam: deferred Rectal Exam: deferred Final Diagnosis/Problem List - Final Discharge Diagnosis/Problem (1) Status post hip hemiarthroplasty Status: Resolved - Discharge Discharge Date: 11/11/16 Disposition: Still a Patient Condition: Stable Prescriptions: No Action Levothyroxine Sodium 75 Mcg [Synthroid 75 Mcg] 75 mcg PO DAILY Lisinopril/Hydrochlorothiazide [Lisinopril-Hctz 20-12.5 mg Tab] 1 each PO DAILY Amlodipine Besylate 10 mg [Norvasc 10 MG] 10 mg PO DAILY Magnesium Oxide 400 mg [Mag-Ox 400] 400 mg PO DAILY Simvastatin 10 mg PO HS Glimepiride 4 mg [Amaryl 4 mg] 2 mg PO BID Calcium Carbonate/Vitamin D3 [Calcium 1,000 + D3 Caplet] 1,500 mg PO DAILY Metformin HCl 500 mg [Glucophage 500 MG] 250 mg PO DAILY Docusate Sodium [Stool Softener] 200 mg PO HS Lisinopril 10 mg [Zestril 10 MG] 10 mg PO DAILY Nitrofurantoin Monohyd/M-Cryst [Macrobid 100 mg Capsule] 100 mg PO BID #12 capsule Hydrocodone Bit/Acetaminophen [[place] 7.5-325 Tablet] 1 each PO [id number] PRN # 50 tablet PRN Reason: Pain Follow up with: KAREN BRAN MD [Primary Care Provider] - 1 Week Forms: Patient Portal Information
== END 2016-11-11 14:30 | disposition swing bed (61) | DRG 470 ==
LOC: MED SURG 08:42 → EDSTATUS 13:03 → MED SURG 14:20
PROVIDERS: ADMIT Orthopaedic Surgery; ATTEND Orthopaedic Surgery
PROC: 0SRB02A Replacement of Left Hip Joint with Metal on Polyethylene Synthetic Substitute, Uncemented, Open Approach (ICD-10-PCS; principal; 2016-11-08)
PROC: 2W3MX1Z Immobilization of Left Lower Extremity using Splint (ICD-10-PCS; 2016-11-08)
DX: M16.12 Unilateral primary osteoarthritis, left hip (principal); I25.810 Atherosclerosis of coronary artery bypass graft(s) without angina pectoris; M25.552 Pain in left hip; Z96.642 Presence of left artificial hip joint; Z79.899 Other long term (current) drug therapy; E11.9 Type 2 diabetes mellitus without complications; Z79.4 Long term (current) use of insulin; E78.5 Hyperlipidemia, unspecified; E03.9 Hypothyroidism, unspecified; M54.5 Low back pain; K59.00 Constipation, unspecified; Z95.1 Presence of aortocoronary bypass graft; Z85.528 Personal history of other malignant neoplasm of kidney
CPT/HCPCS: 01214; 36415; 36620; 73502; 82962; 83036; 85027; 87086; 90670; 94760; 99100; G0009; J0330; J0461; J1170; J1650; J2250; J2270; J2370; J2405; J3010; A9270-GY

== ENCOUNTER 2016-11-11 13:51 | Inpatient (IN) | payer MEDICARE, BC ==
[2016-11-11] MEDS ORDERED: Zofran 4 MG/2 ML VIAL IV PRN (14:46)
[2016-11-11] MEDS ORDERED: Lactated Ringers 1,000 ML IV SCH (14:46)
[2016-11-11] MEDS ORDERED: Morphine PCA 1 MG/ML 30 ML IV PRN (14:46)
[2016-11-11] MEDS: VENELEX OINTMENT TP SCH ×2 (14:57→22:55)
--- NOTE | 2016-11-11 15:31 | XRAY ---
Indication: Post op hip replacement. Swelling bed. Comparison: August 24, 2014. Portable chest remains underinflated with previous CABG surgery. Enlarged cardiac silhouette again obscures the left lung base. Remaining lungs clear. Bony thorax intact again with osteopenia, degenerative changes, and old right humeral head fracture. Impression: Stable nonacute underinflated chest with chronic features.
[2016-11-11] MEDS: NORCO 5/325 MG PO PRN (16:28)
[2016-11-11] MEDS: NovoLOG Insulin SQ PRN (17:09)
[2016-11-11] MEDS ORDERED: Sodium Chloride 0.9% 10 ML FLUSH Syringe IV PRN (17:15)
[2016-11-11] MEDS: Macrobid 100MG Capsule PO SCH (18:46)
[2016-11-11] MEDS: Zocor 10MG PO SCH (22:08)
[2016-11-11] MEDS: Colace 100 MG PO SCH (22:08)
[2016-11-11] MEDS: Zestril 10 MG PO SCH (22:08)
[2016-11-11] MEDS: AMARYL 4 MG PO SCH (22:09)
[2016-11-11] MEDS: Sodium Chloride 0.9% 10 ML FLUSH Syringe IV SCH (22:10)
[2016-11-12] MEDS: NORCO 5/325 MG PO PRN ×4 (00:25→21:47)
[2016-11-12] MEDS: Sodium Chloride 0.9% 10 ML FLUSH Syringe IV SCH ×3 (05:47→21:49)
[2016-11-12] MEDS: NORVASC 5 MG PO SCH (08:36)
[2016-11-12] MEDS: MAG-OX 400 PO SCH (08:38)
[2016-11-12] MEDS: AMARYL 4 MG PO SCH ×2 (08:38→21:48)
[2016-11-12] MEDS: SYNTHROID 75 MCG PO SCH (08:38)
[2016-11-12] MEDS: Calcium 500MG W/Vit D Tablet PO SCH (08:38)
[2016-11-12] MEDS: Macrobid 100MG Capsule PO SCH (08:38)
[2016-11-12] MEDS: Glucophage 500 MG PO SCH (08:38)
[2016-11-12] MEDS: hydroDIURIL 25 MG PO SCH (08:39)
[2016-11-12] MEDS: Zestril 20 MG PO SCH (08:39)
[2016-11-12] MEDS: VENELEX OINTMENT TP SCH ×3 (08:39→21:55)
[2016-11-12] MEDS: Ecotrin 325 MG PO SCH (08:39)
[2016-11-12] MEDS: NovoLOG Insulin SQ PRN ×2 (16:58→21:49)
[2016-11-12] MEDS: Colace 100 MG PO SCH (21:47)
[2016-11-12] MEDS: Zocor 10MG PO SCH (21:47)
[2016-11-12] MEDS: Zestril 10 MG PO SCH (21:47)
[2016-11-13] MEDS: NORCO 5/325 MG PO PRN ×3 (06:55→20:02)
[2016-11-13] MEDS: Sodium Chloride 0.9% 10 ML FLUSH Syringe IV SCH ×3 (06:55→22:23)
[2016-11-13] MEDS: Glucophage 500 MG PO SCH (07:57)
[2016-11-13] MEDS: AMARYL 4 MG PO SCH ×2 (07:58→22:23)
[2016-11-13] MEDS: Zestril 20 MG PO SCH (07:58)
[2016-11-13] MEDS: Calcium 500MG W/Vit D Tablet PO SCH (07:58)
[2016-11-13] MEDS: Ecotrin 325 MG PO SCH (07:59)
[2016-11-13] MEDS: hydroDIURIL 25 MG PO SCH (07:59)
[2016-11-13] MEDS: SYNTHROID 75 MCG PO SCH (07:59)
[2016-11-13] MEDS: NORVASC 5 MG PO SCH (07:59)
[2016-11-13] MEDS: VENELEX OINTMENT TP SCH ×3 (08:00→22:50)
[2016-11-13] MEDS: MAG-OX 400 PO SCH (08:04)
[2016-11-13] MEDS: NovoLOG Insulin SQ PRN (11:28)
[2016-11-13] MEDS: Colace 100 MG PO SCH (22:22)
[2016-11-13] MEDS: Zestril 10 MG PO SCH (22:23)
[2016-11-13] MEDS: Zocor 10MG PO SCH (22:23)
[2016-11-14] MEDS: NORCO 5/325 MG PO PRN ×4 (02:17→22:16)
[2016-11-14] MEDS: hydroDIURIL 25 MG PO SCH (10:04)
[2016-11-14] MEDS: Calcium 500MG W/Vit D Tablet PO SCH (10:05)
[2016-11-14] MEDS: MAG-OX 400 PO SCH (10:05)
[2016-11-14] MEDS: Zestril 20 MG PO SCH (10:06)
[2016-11-14] MEDS: Glucophage 500 MG PO SCH (10:06)
[2016-11-14] MEDS: SYNTHROID 75 MCG PO SCH (10:06)
[2016-11-14] MEDS: Ecotrin 325 MG PO SCH (10:06)
[2016-11-14] MEDS: NORVASC 5 MG PO SCH (10:06)
[2016-11-14] MEDS: VENELEX OINTMENT TP SCH ×3 (11:12→21:23)
[2016-11-14] MEDS: AMARYL 4 MG PO SCH ×2 (11:12→21:22)
--- NOTE | 2016-11-14 13:08 | PCM.NOTE ---
Date and Time: 11/14/16 1307 Subjective Assessment: doing better - Review of Systems Constitutional: No Fever, No Chills Eyes: No Symptoms Ears, Nose, & Throat: No Symptoms Respiratory: No Cough, No Short Of Breath Cardiac: No Chest Pain, No Edema, No Syncope Abdominal/Gastrointestinal: No Abdominal Pain, No Nausea, No Vomiting, No Diarrhea Genitourinary Symptoms: No Dysuria Musculoskeletal: No Back Pain, No Neck Pain Skin: No Rash Neurological: No Dizziness, No Focal Weakness, No Sensory Changes Psychological: No Symptoms Endocrine: No Symptoms Hematologic/Lymphatic: No Symptoms Immunological/Allergic: No Symptoms Objective Exam General Appearance: no apparent distress, alert Neurologic Exam: alert, oriented x 3, cooperative, normal mood/affect, nml cerebellar function, sensation nml, No motor deficits Skin Exam: normal color, warm, dry Eye Exam: PERRL, EOMI, eyes nml inspection Ears, Nose, Throat Exam: normal ENT inspection, pharynx normal, moist mucous membranes Neck Exam: normal inspection, non-tender, supple, full range of motion Respiratory Exam: normal breath sounds, lungs clear, No respiratory distress Cardiovascular Exam: regular rate/rhythm, normal heart sounds Gastrointestinal/Abdomen Exam: soft, No tenderness, No mass Extremity Exam: normal inspection, normal range of motion Back Exam: normal inspection, normal range of motion, No CVA tenderness, No vertebral tenderness Pelvic Exam: deferred Rectal Exam: deferred OBJECTIVE DATA Vital Signs: Vital Signs - 24 hr Temp Pulse Resp BP Pulse Ox 11/14/16 10:06 97.8 F 68 20 144/67 98 11/13/16 20:00 98.7 F 83 24 147/67 96 Pain Assessment - Last Documented Pain Intensity 3 Pain Scale Used 0-10 Pain Scale Intake and Output: Intake & Output 11/12/16 11/13/16 11/14/16 11/15/16 11:59 11:59 11:59 11:59 Intake Total 740 1480 1880 Balance 740 1480 1880 Weight 75.75 kg Lab Results: Accuchecks Date 11/14/16 Date 11/13/16 Time 07:30 Time 17:19 Accucheck Value: 78 Accucheck Value: 224 Accucheck Value: 109 Assessment/Plan (1) S/P hip replacement Current Visit: Yes Status: Acute Qualifiers: Laterality: left Qualified Code(s): Z96.642 - Presence of left artificial hip joint Code(s): Z96.649 - PRESENCE OF UNSPECIFIED ARTIFICIAL HIP JOINT (2) Status post hip hemiarthroplasty Current Visit: Yes Status: Acute Code(s): Z96.649 - PRESENCE OF UNSPECIFIED ARTIFICIAL HIP JOINT
[2016-11-14] MEDS: NovoLOG Insulin SQ PRN (14:08)
[2016-11-14] MEDS: Sodium Chloride 0.9% 10 ML FLUSH Syringe IV SCH ×3 (16:05→21:24)
[2016-11-14] MEDS: Zocor 10MG PO SCH (21:22)
[2016-11-14] MEDS: Zestril 10 MG PO SCH (21:22)
[2016-11-14] MEDS: Colace 100 MG PO SCH (21:22)
[2016-11-15] MEDS: NORCO 5/325 MG PO PRN ×4 (04:43→23:38)
[2016-11-15] MEDS: Sodium Chloride 0.9% 10 ML FLUSH Syringe IV SCH ×3 (05:32→22:18)
[2016-11-15] MEDS: SYNTHROID 75 MCG PO SCH (09:39)
[2016-11-15] MEDS: Ecotrin 325 MG PO SCH (09:39)
[2016-11-15] MEDS: Calcium 500MG W/Vit D Tablet PO SCH (09:39)
[2016-11-15] MEDS: NORVASC 5 MG PO SCH (09:39)
[2016-11-15] MEDS: hydroDIURIL 25 MG PO SCH (09:39)
[2016-11-15] MEDS: Glucophage 500 MG PO SCH (09:40)
[2016-11-15] MEDS: AMARYL 4 MG PO SCH ×2 (09:40→22:17)
[2016-11-15] MEDS: MAG-OX 400 PO SCH (09:40)
[2016-11-15] MEDS: Zestril 20 MG PO SCH (09:40)
[2016-11-15] MEDS: VENELEX OINTMENT TP SCH ×2 (09:41→14:33)
--- NOTE | 2016-11-15 11:31 | PCM.NOTE ---
Date and Time: 11/15/16 1130 Subjective Assessment: doing better - Review of Systems Constitutional: No Fever, No Chills Eyes: No Symptoms Ears, Nose, & Throat: No Symptoms Respiratory: No Cough, No Short Of Breath Cardiac: No Chest Pain, No Edema, No Syncope Abdominal/Gastrointestinal: No Abdominal Pain, No Nausea, No Vomiting, No Diarrhea Genitourinary Symptoms: No Dysuria Musculoskeletal: No Back Pain, No Neck Pain Skin: No Rash Neurological: No Dizziness, No Focal Weakness, No Sensory Changes Psychological: No Symptoms Endocrine: No Symptoms Hematologic/Lymphatic: No Symptoms Immunological/Allergic: No Symptoms Objective Exam General Appearance: no apparent distress, alert Neurologic Exam: alert, oriented x 3, cooperative, normal mood/affect, nml cerebellar function, sensation nml, No motor deficits Skin Exam: normal color, warm, dry Eye Exam: PERRL, EOMI, eyes nml inspection Ears, Nose, Throat Exam: normal ENT inspection, pharynx normal, moist mucous membranes Neck Exam: normal inspection, non-tender, supple, full range of motion Respiratory Exam: normal breath sounds, lungs clear, No respiratory distress Cardiovascular Exam: regular rate/rhythm, normal heart sounds Gastrointestinal/Abdomen Exam: soft, No tenderness, No mass Extremity Exam: normal inspection, normal range of motion Back Exam: normal inspection, normal range of motion, No CVA tenderness, No vertebral tenderness Pelvic Exam: deferred Rectal Exam: deferred OBJECTIVE DATA Vital Signs: Vital Signs - 24 hr Temp Pulse Resp BP Pulse Ox 11/15/16 11:19 98.6 F 11/15/16 08:04 98.6 F 70 20 139/65 97 11/14/16 19:58 97.4 F 70 19 134/60 94 L Pain Assessment - Last Documented Pain Intensity 3 Pain Scale Used 0-10 Pain Scale Intake and Output: Intake & Output 11/12/16 11/13/16 11/14/16 11/15/16 11:59 11:59 11:59 11:59 Intake Total 740 1480 1880 1540 Balance 740 1480 1880 1540 Weight 75.75 kg Lab Results: Accuchecks Date 11/15/16 Date 11/14/16 Date 11/14/16 Time 07:30 Time 22:00 Time 16:30 Accucheck Value: 97 Accucheck Value: 270 Accucheck Value: 155 Multi-Disciplinary Progress Notes: Multi-Disciplinary Progress Notes 11/14/16 13:07 Physical Therapy Note by Monet Jensen PATIENT TO P.T. DEPT THIS A.M GOOD TOLERANCE OF PARALLEL BAR STANDING ACTIVITIES: FORWARD/RETRO WALK AND SIDE TO SIDE WALK. LIFT-TOUCH LLE TO STEP A/ P AND LATERAL 10 REPS EACH. STANDING HEEL RAISES AND QTR SQUATS 10 REPS EACH. SUPINE EXERCISE ON MAT HIP FLEXION AND ABDUCTION, SAQ'S; SITTING HEEL RAISES AND TOE TAPS. DRESSING CHANGED TO TRANSPARENT FILM LEFT HIP - MAURISIO STILL IN PLACE; WOUND WELL APPROXIMATED AND DRY. Initialized on 11/14/16 13:07 - END OF NOTE Assessment/Plan (1) S/P hip replacement Current Visit: Yes Status: Acute Qualifiers: Laterality: left Qualified Code(s): Z96.642 - Presence of left artificial hip joint Code(s): Z96.649 - PRESENCE OF UNSPECIFIED ARTIFICIAL HIP JOINT (2) Status post hip hemiarthroplasty Current Visit: Yes Status: Acute Code(s): Z96.649 - PRESENCE OF UNSPECIFIED ARTIFICIAL HIP JOINT
[2016-11-15] MEDS ORDERED: TORAdol 30 mg Injection IM PRN (11:39)
[2016-11-15] MEDS: NovoLOG Insulin SQ PRN (13:07)
[2016-11-15] MEDS: Colace 100 MG PO SCH (22:18)
[2016-11-15] MEDS: Zestril 10 MG PO SCH (22:20)
[2016-11-15] MEDS: Zocor 10MG PO SCH (22:20)
[2016-11-15] MEDS: TORAdol 30 mg Injection IM SCH (22:51)
[2016-11-16] MEDS: VENELEX OINTMENT TP SCH ×4 (00:46→22:19)
[2016-11-16] MEDS: Sodium Chloride 0.9% 10 ML FLUSH Syringe IV SCH ×3 (06:14→22:21)
[2016-11-16] MEDS: Calcium 500MG W/Vit D Tablet PO SCH (10:04)
[2016-11-16] MEDS: Zestril 20 MG PO SCH (10:04)
[2016-11-16] MEDS: NORVASC 5 MG PO SCH (10:04)
[2016-11-16] MEDS: hydroDIURIL 25 MG PO SCH (10:05)
[2016-11-16] MEDS: MAG-OX 400 PO SCH (10:05)
[2016-11-16] MEDS: AMARYL 4 MG PO SCH ×2 (10:05→22:27)
[2016-11-16] MEDS: SYNTHROID 75 MCG PO SCH (10:05)
[2016-11-16] MEDS: Ecotrin 325 MG PO SCH (10:05)
[2016-11-16] MEDS: Glucophage 500 MG PO SCH (10:05)
[2016-11-16] MEDS: NORCO 5/325 MG PO PRN ×2 (10:23→22:15)
[2016-11-16] MEDS: NovoLOG Insulin SQ PRN (12:44)
--- NOTE | 2016-11-16 20:02 | PCM.NOTE ---
Date and Time: 11/16/162000 Subjective Assessment: doing better - Review of Systems Constitutional: No Fever, No Chills Eyes: No Symptoms Ears, Nose, & Throat: No Symptoms Respiratory: No Cough, No Short Of Breath Cardiac: No Chest Pain, No Edema, No Syncope Abdominal/Gastrointestinal: No Abdominal Pain, No Nausea, No Vomiting, No Diarrhea Genitourinary Symptoms: No Dysuria Musculoskeletal: No Back Pain, No Neck Pain Skin: No Rash Neurological: No Dizziness, No Focal Weakness, No Sensory Changes Psychological: No Symptoms Endocrine: No Symptoms Hematologic/Lymphatic: No Symptoms Immunological/Allergic: No Symptoms Objective Exam General Appearance: no apparent distress, alert Neurologic Exam: alert, oriented x 3, cooperative, normal mood/affect, nml cerebellar function, sensation nml, No motor deficits Skin Exam: normal color, warm, dry Eye Exam: PERRL, EOMI, eyes nml inspection Ears, Nose, Throat Exam: normal ENT inspection, pharynx normal, moist mucous membranes Neck Exam: normal inspection, non-tender, supple, full range of motion Respiratory Exam: normal breath sounds, lungs clear, No respiratory distress Cardiovascular Exam: regular rate/rhythm, normal heart sounds Gastrointestinal/Abdomen Exam: soft, No tenderness, No mass Extremity Exam: normal inspection, normal range of motion Back Exam: normal inspection, normal range of motion, No CVA tenderness, No vertebral tenderness Pelvic Exam: deferred Rectal Exam: deferred OBJECTIVE DATA Vital Signs: Vital Signs - 24 hr Temp Pulse Resp BP Pulse Ox 11/16/16 07:51 97.9 F 60 18 157/68 97 Pain Assessment - Last Documented Pain Intensity 0 Pain Scale Used 0-10 Pain Scale Intake and Output: Intake & Output 11/14/16 11/15/16 11/16/16 11/17/16 11:59 11:59 11:59 11:59 Intake Total 1880 1540 1470 880 Balance 1880 1540 1470 880 Weight 75.75 kg Lab Results: Accuchecks Date 11/15/16 Time 22:00 Accucheck Value: 132 Accucheck Value: 223 Accucheck Value: 97 Accucheck Value: 169 Assessment/Plan (1) S/P hip replacement Current Visit: Yes Status: Acute Qualifiers: Laterality: left Qualified Code(s): Z96.642 - Presence of left artificial hip joint Assessment & Plan: continue present management Code(s): Z96.649 - PRESENCE OF UNSPECIFIED ARTIFICIAL HIP JOINT (2) Status post hip hemiarthroplasty Current Visit: Yes Status: Acute Code(s): Z96.649 - PRESENCE OF UNSPECIFIED ARTIFICIAL HIP JOINT
[2016-11-16] MEDS: Colace 100 MG PO SCH (22:14)
[2016-11-16] MEDS: Zestril 10 MG PO SCH (22:15)
[2016-11-16] MEDS: TORAdol 30 mg Injection IM SCH (22:16)
[2016-11-16] MEDS: Zocor 10MG PO SCH (22:19)
[2016-11-17] MEDS: Sodium Chloride 0.9% 10 ML FLUSH Syringe IV SCH (06:09)
[2016-11-17] MEDS: NORCO 5/325 MG PO PRN ×3 (07:24→23:55)
[2016-11-17] MEDS: NORVASC 5 MG PO SCH (09:20)
[2016-11-17] MEDS: hydroDIURIL 25 MG PO SCH (09:20)
[2016-11-17] MEDS: Ecotrin 325 MG PO SCH (09:21)
[2016-11-17] MEDS: AMARYL 4 MG PO SCH ×2 (09:21→22:00)
[2016-11-17] MEDS: Calcium 500MG W/Vit D Tablet PO SCH (09:21)
[2016-11-17] MEDS: Glucophage 500 MG PO SCH (09:22)
[2016-11-17] MEDS: MAG-OX 400 PO SCH (09:22)
[2016-11-17] MEDS: SYNTHROID 75 MCG PO SCH (09:22)
[2016-11-17] MEDS: Zestril 20 MG PO SCH (09:23)
[2016-11-17] MEDS: VENELEX OINTMENT TP SCH ×3 (09:23→21:47)
[2016-11-17] MEDS: NovoLOG Insulin SQ PRN ×2 (11:46→22:16)
--- NOTE | 2016-11-17 12:25 | PCM.NOTE ---
Date and Time: 11/17/16 1224 Subjective Assessment: doing better - Review of Systems Constitutional: No Fever, No Chills Eyes: No Symptoms Ears, Nose, & Throat: No Symptoms Respiratory: No Cough, No Short Of Breath Cardiac: No Chest Pain, No Edema, No Syncope Abdominal/Gastrointestinal: No Abdominal Pain, No Nausea, No Vomiting, No Diarrhea Genitourinary Symptoms: No Dysuria Musculoskeletal: No Back Pain, No Neck Pain Skin: No Rash Neurological: No Dizziness, No Focal Weakness, No Sensory Changes Psychological: No Symptoms Endocrine: No Symptoms Hematologic/Lymphatic: No Symptoms Immunological/Allergic: No Symptoms Objective Exam General Appearance: no apparent distress, alert Neurologic Exam: alert, oriented x 3, cooperative, normal mood/affect, nml cerebellar function, sensation nml, No motor deficits Skin Exam: normal color, warm, dry Eye Exam: PERRL, EOMI, eyes nml inspection Ears, Nose, Throat Exam: normal ENT inspection, pharynx normal, moist mucous membranes Neck Exam: normal inspection, non-tender, supple, full range of motion Respiratory Exam: normal breath sounds, lungs clear, No respiratory distress Cardiovascular Exam: regular rate/rhythm, normal heart sounds Gastrointestinal/Abdomen Exam: soft, No tenderness, No mass Extremity Exam: normal inspection, normal range of motion Back Exam: normal inspection, normal range of motion, No CVA tenderness, No vertebral tenderness Pelvic Exam: deferred Rectal Exam: deferred OBJECTIVE DATA Vital Signs: Vital Signs - 24 hr Temp Pulse Resp BP Pulse Ox 11/17/16 07:18 97.7 F 80 20 136/70 97 Pain Assessment - Last Documented Pain Intensity 2 Pain Scale Used 0-10 Pain Scale Intake and Output: Intake & Output 11/15/16 11/16/16 11/17/16 11/18/16 11:59 11:59 11:59 11:59 Intake Total 1540 1470 1320 360 Balance 1540 1470 1320 360 Weight 75.75 kg Lab Results: Accuchecks Date 11/16/16 Time 22:00 Accucheck Value: 288 Accucheck Value: 79 Accucheck Value: 127 Accucheck Value: 132 Assessment/Plan (1) S/P hip replacement Current Visit: Yes Status: Acute Qualifiers: Laterality: left Qualified Code(s): Z96.642 - Presence of left artificial hip joint Assessment & Plan: doing better Code(s): Z96.649 - PRESENCE OF UNSPECIFIED ARTIFICIAL HIP JOINT (2) Status post hip hemiarthroplasty Current Visit: Yes Status: Acute Code(s): Z96.649 - PRESENCE OF UNSPECIFIED ARTIFICIAL HIP JOINT
[2016-11-17 21:01] VITALS: O2SAT 96
[2016-11-17] MEDS: Zocor 10MG PO SCH (22:00)
[2016-11-17] MEDS: Colace 100 MG PO SCH (22:00)
[2016-11-17] MEDS: Zestril 10 MG PO SCH (22:00)
[2016-11-17] MEDS: TORAdol 30 mg Injection IM SCH (22:02)
[2016-11-18 07:45] VITALS: BP 118/55; PULSE 74
[2016-11-18] MEDS: Zestril 20 MG PO SCH (10:20)
[2016-11-18] MEDS: Glucophage 500 MG PO SCH (10:20)
[2016-11-18] MEDS: MAG-OX 400 PO SCH (10:20)
[2016-11-18] MEDS: Ecotrin 325 MG PO SCH (10:21)
[2016-11-18] MEDS: SYNTHROID 75 MCG PO SCH (10:21)
[2016-11-18] MEDS: hydroDIURIL 25 MG PO SCH (10:21)
[2016-11-18] MEDS: AMARYL 4 MG PO SCH (10:22)
[2016-11-18] MEDS: NORVASC 5 MG PO SCH (10:22)
[2016-11-18] MEDS: Calcium 500MG W/Vit D Tablet PO SCH (10:26)
[2016-11-18] MEDS: VENELEX OINTMENT TP SCH (10:32)
--- NOTE | 2016-11-18 17:21 | PCM.DS ---
Discharge Summary Date of Admission: 11/11/16 14:30 Date of Discharge: 11/18/2016 Admitting Physician: NOHEMY KWON Primary Care Provider: KAREN BRAN Allergies Allergies cefaclor [From Ceclor] Allergy (Intermediate, Verified 11/08/16 09:55) Rash Penicillins Allergy (Intermediate, Verified 11/08/16 09:55) Rash Sulfa (Sulfonamide Antibiotics) Allergy (Intermediate, Verified 11/08/16 09:55) Rash atorvastatin [From Lipitor] Adverse Reaction (Verified 11/08/16 09:55) carvedilol [From Coreg] Adverse Reaction (Verified 11/08/16 09:55) rosuvastatin [From Crestor] Adverse Reaction (Verified 11/08/16 09:55) Hospital Summary - Hospital Course Hospital Course: Chief Complaint Diagnosis Deconditioning r/t total left hip replacement Allergies Allergy/AdvReac Type Severity Reaction Status Date / Time cefaclor [From Ceclor] Allergy Intermediate Rash Verified 11/08/16 09:55 Penicillins Allergy Intermediate Rash Verified 11/08/16 09:55 Sulfa (Sulfonamide Allergy Intermediate Rash Verified 11/08/16 09:55 Antibiotics) atorvastatin [From Lipitor] AdvReac Verified 11/08/16 09:55 carvedilol [From Coreg] AdvReac Verified 11/08/16 09:55 rosuvastatin [From Crestor] AdvReac Verified 11/08/16 09:55 Vital Signs (Last 24 hours) Temp Pulse Resp BP Pulse Ox 11/18/16 07:44 97.8 F 74 20 118/55 96 11/17/16 20:00 98.0 F 65 18 116/54 96 Home Medications Medication Instructions Recorded Confirmed Last Taken Type Hydrocodone Bit/Acetaminophen 1 each PO [id number] PRN #50 tablet 11/18/16 Unknown Rx [[place] 7.5-325 Tablet] Current Medications Discontinued Medications Generic Name Dose Route Start Last Admin Trade Name Freq PRN Reason Stop Dose Admin Acetaminophen/Hydrocodone Bitart 1 tab 11/11/16 14:46 11/17/16 23:55 [place] 5/325 Mg PO 11/21/16 12:00 1 tab Q6H PRN PRN Administration PAIN Amlodipine Besylate 10 mg 11/11/16 14:46 11/18/16 10:22 Norvasc 5 Mg PO 12/09/16 09:59 10 mg DAILY GIL Administration Aspirin 325 mg 11/11/16 14:46 11/18/16 10:21 Ecotrin 325 Mg PO 12/11/16 09:59 325 mg QAM GIL Administration Calcium Carbonate 3 tab 11/11/16 14:46 11/18/16 10:26 Calcium 500mg W/Vit D Tablet PO 12/09/16 09:59 3 tab DAILY GIL Administration Docusate Sodium 200 mg 11/11/16 14:46 11/17/16 22:00 Colace 100 Mg PO 12/08/16 21:59 200 mg HS GIL Administration Glimepiride 2 mg 11/11/16 14:46 11/18/16 10:22 Amaryl 4 Mg PO 12/08/16 21:59 2 mg BID GIL Administration Hydrochlorothiazide 12.5 mg 11/11/16 14:46 11/18/16 10:21 Hydrodiuril 25 Mg PO 12/09/16 09:59 12.5 mg QAM GIL Administration Lactated Ringer's 1,000 mls @ 60 mls/hr 11/11/16 14:46 Lactated Ringers IV 12/08/16 08:29 .[id number] GIL Insulin Aspart 0 unit 11/11/16 14:46 11/17/16 22:16 Novolog Insulin SQ 12/09/16 14:14 4 unit UD PRN Administration HYPERGLYCEMIA Ketorolac Tromethamine 30 mg 11/15/16 11:39 11/15/16 15:24 Toradol 30 Mg Injection IM 11/20/16 12:09 30 mg 1XONLY PRN Administration PAIN Ketorolac Tromethamine 30 mg 11/15/16 22:00 11/17/16 22:02 Toradol 30 Mg Injection IM 11/20/16 21:59 30 mg HS GIL Administration Levothyroxine Sodium 75 mcg 11/11/16 14:46 11/18/16 10:21 Synthroid 75 Mcg PO 12/09/16 09:59 75 mcg DAILY GIL Administration Lisinopril 20 mg 11/11/16 14:46 11/18/16 10:20 Zestril 20 Mg PO 12/09/16 09:59 20 mg DAILY GIL Administration Lisinopril 10 mg 11/11/16 14:46 11/17/16 22:00 Zestril 10 Mg PO 12/09/16 09:59 10 mg HS GIL Administration Magnesium Oxide 400 mg 11/11/16 14:46 11/18/16 10:20 Mag-Ox 400 PO 12/09/16 09:59 400 mg DAILY GIL Administration Metformin HCl 250 mg 11/11/16 14:46 11/18/16 10:20 Glucophage 500 Mg PO 12/09/16 09:59 250 mg DAILY GIL Administration Morphine Sulfate 0 mg 11/11/16 14:46 11/11/16 15:02 Morphine Perfect Binder Setter 1 Mg/Ml 30 Ml IV 11/13/16 14:20 1 mg PRN PRN Administration Nitrofurantoin Macrocrystals 100 mg 11/11/16 14:46 11/12/16 08:38 Macrobid 100mg Capsule PO 11/12/16 10:00 100 mg BIDPC GIL Administration Ondansetron HCl 4 mg 11/11/16 14:46 Zofran 4 Mg/2 Ml Vial IV 12/08/16 14:39 Q4H PRN PRN NAUSEA Simvastatin 10 mg 11/11/16 14:46 11/17/16 22:00 Zocor 10mg PO 12/08/16 21:59 10 mg HS GIL Administration Sodium Chloride 10 ml 11/11/16 22:00 11/17/16 06:09 Sodium Chloride 0.9% 10 Ml Flush Syringe IV 12/11/16 21:59 10 ml Q8HT GIL Administration Sodium Chloride 10 ml 11/11/16 17:15 Sodium Chloride 0.9% 10 Ml Flush Syringe IV 12/11/16 17:14 PRN PRN Intake & Output (Last 24 hours) 11/16/16 11/17/16 11/18/16 11/19/16 11:59 11:59 11:59 11:59 Intake Total 1470 1320 1960 Balance 1470 1320 1960 Weight 75.75 kg Orders (Last 24 hours) Category Date Time Status Miscellaneous Nursing Order ROUTINE Care 11/18/16 09:48 Active Discharge Routine Discharge 11/18/16 09:35 Ordered Discharge/Telephone Order Routine Discharge 11/18/16 09:35 Active Patient Care Notes (Last 24 hours) 11/18/16 10:21 Nursing Note by Brigitte Wylie ck removed from left hip, noted small suture embedded in incision. attempted to remove but unable to get tweezers or scissors under suture. left area open and steri strips placed around where suture is. informed pt and daughter and son that there was a suture still in place that will need to be removed by Dr Gilmore on follow up visit d/t so embedded into skin and skin had healed and grown around area. Informed pt nurse Initialized on 11/18/16 10:21 - END OF NOTE 11/18/16 10:00 (created 11/18/16 15:01) Case Management Note by Peyton Chen MD ORDER TO DC HOME TODAY WITH [facility]. FAMILY PRESENT AT BEDSIDE AND AWARE OF DC ORDERS. CALL TO [facility] TO REPORT DISCHARGE, SPOKE WITH MAIRA, FAXED DC ORDERS. Initialized on 11/18/16 15:01 - END OF NOTE - Vitals & Intake/Output Vital Signs: Vital Signs Temperature 97.8 F 11/18/16 07:44 Pulse Rate 74 11/18/16 07:44 Respiratory Rate 20 11/18/16 07:44 Blood Pressure 118/55 11/18/16 07:44 O2 Sat by Pulse Oximetry 96 11/18/16 07:44 Intake & Output: Intake & Output 11/16/16 11/17/16 11/18/16 11/19/16 11:59 11:59 11:59 11:59 Intake Total 1470 1320 1960 Balance 1470 1320 1960 Weight 75.75 kg - Lab Lab Results-Last 24 Hrs: Accuchecks Accucheck Value: 253 Micro Results-Entire Visit: Accuchecks Accucheck Value: 253 - Procedures and Test Procedures and Tests throughout Hospitalization: Therapy Orders & Screens 11/11/16 14:51 PT Eval & Treat ( Order) ROUTINE Evaluate: Yes Treat: Yes Reason for Eval:: Deconditioning r/t total left hip replacement Diagnosis: Deconditioning r/t total left hip replacement Discharge Exam General Appearance: no apparent distress, alert Neurologic Exam: alert, oriented x 3, cooperative, normal mood/affect, nml cerebellar function, sensation nml, No motor deficits Skin Exam: normal color, warm, dry Eye Exam: PERRL, EOMI, eyes nml inspection Ears, Nose, Throat Exam: normal ENT inspection, pharynx normal, moist mucous membranes Neck Exam: normal inspection, non-tender, supple, full range of motion Respiratory Exam: normal breath sounds, lungs clear, No respiratory distress Cardiovascular Exam: regular rate/rhythm, normal heart sounds Gastrointestinal/Abdomen Exam: soft, No tenderness, No mass Extremity Exam: normal inspection, normal range of motion Back Exam: normal inspection, normal range of motion, No CVA tenderness, No vertebral tenderness Pelvic Exam: deferred Rectal Exam: deferred Final Diagnosis/Problem List - Final Discharge Diagnosis/Problem (1) S/P hip replacement Status: Acute Priority: High Assessment & Plan: plan to d/c home today with home health. Chief Complaint Diagnosis Deconditioning r/t total left hip replacement Allergies Allergy/AdvReac Type Severity Reaction Status Date / Time cefaclor [From Ceclor] Allergy Intermediate Rash Verified 11/08/16 09:55 Penicillins Allergy Intermediate Rash Verified 11/08/16 09:55 Sulfa (Sulfonamide Allergy Intermediate Rash Verified 11/08/16 09:55 Antibiotics) atorvastatin [From Lipitor] AdvReac Verified 11/08/16 09:55 carvedilol [From Coreg] AdvReac Verified 11/08/16 09:55 rosuvastatin [From Crestor] AdvReac Verified 11/08/16 09:55 Vital Signs (Last 24 hours) Temp Pulse Resp BP Pulse Ox 11/18/16 07:44 97.8 F 74 20 118/55 96 11/17/16 20:00 98.0 F 65 18 116/54 96 Home Medications Medication Instructions Recorded Confirmed Last Taken Type Hydrocodone Bit/Acetaminophen 1 each PO [id number] PRN #50 tablet 11/18/16 Unknown Rx [[place] 7.5-325 Tablet] Current Medications Discontinued Medications Generic Name Dose Route Start Last Admin Trade Name Freq PRN Reason Stop Dose Admin Acetaminophen/Hydrocodone Bitart 1 tab 11/11/16 14:46 11/17/16 23:55 [place] 5/325 Mg PO 11/21/16 12:00 1 tab Q6H PRN PRN Administration PAIN Amlodipine Besylate 10 mg 11/11/16 14:46 11/18/16 10:22 Norvasc 5 Mg PO 12/09/16 09:59 10 mg DAILY GIL Administration Aspirin 325 mg 11/11/16 14:46 11/18/16 10:21 Ecotrin 325 Mg PO 12/11/16 09:59 325 mg QAM GIL Administration Calcium Carbonate 3 tab 11/11/16 14:46 11/18/16 10:26 Calcium 500mg W/Vit D Tablet PO 12/09/16 09:59 3 tab DAILY GIL Administration Docusate Sodium 200 mg 11/11/16 14:46 11/17/16 22:00 Colace 100 Mg PO 12/08/16 21:59 200 mg HS GIL Administration Glimepiride 2 mg 11/11/16 14:46 11/18/16 10:22 Amaryl 4 Mg PO 12/08/16 21:59 2 mg BID GIL Administration Hydrochlorothiazide 12.5 mg 11/11/16 14:46 11/18/16 10:21 Hydrodiuril 25 Mg PO 12/09/16 09:59 12.5 mg QAM GIL Administration Lactated Ringer's 1,000 mls @ 60 mls/hr 11/11/16 14:46 Lactated Ringers IV 12/08/16 08:29 .[id number] GIL Insulin Aspart 0 unit 11/11/16 14:46 11/17/16 22:16 Novolog Insulin SQ 12/09/16 14:14 4 unit UD PRN Administration HYPERGLYCEMIA Ketorolac Tromethamine 30 mg 11/15/16 11:39 11/15/16 15:24 Toradol 30 Mg Injection IM 11/20/16 12:09 30 mg 1XONLY PRN Administration PAIN Ketorolac Tromethamine 30 mg 11/15/16 22:00 11/17/16 22:02 Toradol 30 Mg Injection IM 11/20/16 21:59 30 mg HS GIL Administration Levothyroxine Sodium 75 mcg 11/11/16 14:46 11/18/16 10:21 Synthroid 75 Mcg PO 12/09/16 09:59 75 mcg DAILY GIL Administration Lisinopril 20 mg 11/11/16 14:46 11/18/16 10:20 Zestril 20 Mg PO 12/09/16 09:59 20 mg DAILY GIL Administration Lisinopril 10 mg 11/11/16 14:46 11/17/16 22:00 Zestril 10 Mg PO 12/09/16 09:59 10 mg HS GIL Administration Magnesium Oxide 400 mg 11/11/16 14:46 11/18/16 10:20 Mag-Ox 400 PO 12/09/16 09:59 400 mg DAILY GIL Administration Metformin HCl 250 mg 11/11/16 14:46 11/18/16 10:20 Glucophage 500 Mg PO 12/09/16 09:59 250 mg DAILY GIL Administration Morphine Sulfate 0 mg 11/11/16 14:46 11/11/16 15:02 Morphine Perfect Binder Setter 1 Mg/Ml 30 Ml IV 11/13/16 14:20 1 mg PRN PRN Administration Nitrofurantoin Macrocrystals 100 mg 11/11/16 14:46 11/12/16 08:38 Macrobid 100mg Capsule PO 11/12/16 10:00 100 mg BIDPC GIL Administration Ondansetron HCl 4 mg 11/11/16 14:46 Zofran 4 Mg/2 Ml Vial IV 12/08/16 14:39 Q4H PRN PRN NAUSEA Simvastatin 10 mg 11/11/16 14:46 11/17/16 22:00 Zocor 10mg PO 12/08/16 21:59 10 mg HS GIL Administration Sodium Chloride 10 ml 11/11/16 22:00 11/17/16 06:09 Sodium Chloride 0.9% 10 Ml Flush Syringe IV 12/11/16 21:59 10 ml Q8HT GIL Administration Sodium Chloride 10 ml 11/11/16 17:15 Sodium Chloride 0.9% 10 Ml Flush Syringe IV 12/11/16 17:14 PRN PRN Intake & Output (Last 24 hours) 11/16/16 11/17/16 11/18/16 11/19/16 11:59 11:59 11:59 11:59 Intake Total 1470 1320 1960 Balance 1470 1320 1960 Weight 75.75 kg Orders (Last 24 hours) Category Date Time Status Miscellaneous Nursing Order ROUTINE Care 11/18/16 09:48 Active Discharge Routine Discharge 11/18/16 09:35 Ordered Discharge/Telephone Order Routine Discharge 11/18/16 09:35 Active Patient Care Notes (Last 24 hours) 11/18/16 10:21 Nursing Note by Brigitte Wylie ck removed from left hip, noted small suture embedded in incision. attempted to remove but unable to get tweezers or scissors under suture. left area open and steri strips placed around where suture is. informed pt and daughter and son that there was a suture still in place that will need to be removed by Dr Gilmore on follow up visit d/t so embedded into skin and skin had healed and grown around area. Informed pt nurse Initialized on 11/18/16 10:21 - END OF NOTE 11/18/16 10:00 (created 11/18/16 15:01) Case Management Note by Peyton Chen MD ORDER TO DC HOME TODAY WITH [facility]. FAMILY PRESENT AT BEDSIDE AND AWARE OF DC ORDERS. CALL TO [facility] TO REPORT DISCHARGE, SPOKE WITH MAIRA, FAXED DC ORDERS. Initialized on 11/18/16 15:01 - END OF NOTE (2) Status post hip hemiarthroplasty Status: Acute - Discharge Disposition: Home Health @ [facility] Condition: Good Prescriptions: New Hydrocodone Bit/Acetaminophen [[place] 7.5-325 Tablet] 1 each PO [id number] PRN # 50 tablet PRN Reason: Pain Continue Levothyroxine Sodium 75 Mcg [Synthroid 75 Mcg] 75 mcg PO DAILY Lisinopril/Hydrochlorothiazide [Lisinopril-Hctz 20-12.5 mg Tab] 1 each PO DAILY Amlodipine Besylate 10 mg [Norvasc 10 MG] 10 mg PO DAILY Magnesium Oxide 400 mg [Mag-Ox 400] 400 mg PO DAILY Simvastatin 10 mg PO HS Glimepiride 4 mg [Amaryl 4 mg] 2 mg PO BID Calcium Carbonate/Vitamin D3 [Calcium 1,000 + D3 Caplet] 1,500 mg PO DAILY Metformin HCl 500 mg [Glucophage 500 MG] 250 mg PO DAILY Docusate Sodium [Stool Softener] 200 mg PO HS Lisinopril 10 mg [Zestril 10 MG] 10 mg PO DAILY Nitrofurantoin Monohyd/M-Cryst [Macrobid 100 mg Capsule] 100 mg PO BID #12 capsule Discontinued Hydrocodone Bit/Acetaminophen [[place] 5-325 Tablet] 1 each PO TIDPRN #20 tablet Instructions: Hip Replacement Additional Instructions: [facility] WILL CALL YOU TO ARRANGE YOUR FIRST YOUR FIRST VISIT. YOU MAY REACH THEM AT ext [phone] FOR ANY NEEDS. Follow up with: ISAAC GILMORE [ACTIVE STAFF] - 12/20/16 1:00 pm ([facility]) KAREN BRAN MD [Primary Care Provider] - 12/02/16 2:15 pm ([facility]) Forms: Discharge Instructions
== END 2016-11-18 11:10 | disposition home health service (06) | DRG 948 ==
LOC: MED SURG 14:30 → UNDOADMIN 14:32
PROVIDERS: ADMIT General Practice; ATTEND General Practice
DX: R53.81 Other malaise (principal); Z96.649 Presence of unspecified artificial hip joint; E11.9 Type 2 diabetes mellitus without complications; Z79.4 Long term (current) use of insulin; I10 Essential (primary) hypertension; E03.9 Hypothyroidism, unspecified; E66.9 Obesity, unspecified; Z79.899 Other long term (current) drug therapy
CPT/HCPCS: 71010; 82962; J1885; A9270-GY

== ENCOUNTER 2018-03-13 18:03 | Emergency (ER) | payer MEDICARE, BC ==
--- NOTE | 2018-03-13 19:08 | ERPHSYRPT ---
- History of Present Illness Time Seen by Provider: 03/13/18 18:56 Historian: patient Exam Limitations: no limitations Patient Subjective Stated Complaint: pt reports low back pain beginning yesterday-states that over time pain has began to wrap around waist and go into low abd area-denies difficutly with urination but states that she only has on kidney-unsure of fever Triage Nursing Assessment: pt pink warm and [id number] easy and nonlabored- abd soft and tender to palp-pt denies difficutly with bowels Physician History: Pt started c/o diffuse, lower abdominal pain, radiating to her back since this morning, nauseated, denies vomiting, diarrhea, bloody or black stool, also c/o chills, and urinary frequency, no fever, bloody urine, or other complaints. 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 Timing/Duration: today Activities at Onset: none Quality: cramping Abdominal Pain Onset Location: suprapubic Pain Radiation: back Severity of Pain-Max: moderate Severity of Pain-Current: moderate Modifying Factors: Improves With: nothing Associated Symptoms: back, nausea Previous symptoms: same symptoms as today Allergies/Adverse Reactions: cefaclor [From Ceclor] Allergy (Intermediate, Verified 03/13/18 18:45) Rash Penicillins Allergy (Intermediate, Verified 03/13/18 18:45) Rash Sulfa (Sulfonamide Antibiotics) Allergy (Intermediate, Verified 03/13/18 18:45) Rash atorvastatin [From Lipitor] Adverse Reaction (Verified 03/13/18 18:45) carvedilol [From Coreg] Adverse Reaction (Verified 03/13/18 18:45) rosuvastatin [From Crestor] Adverse Reaction (Verified 03/13/18 18:45) Home Medications: Amlodipine Besylate 10 mg [Norvasc 10 MG] 10 mg PO DAILY 06/24/13 [History] Levothyroxine Sodium 75 Mcg [Synthroid 75 Mcg] 75 mcg PO DAILY 06/24/13 [ History] Lisinopril/Hydrochlorothiazide [Lisinopril-Hctz 20-12.5 mg Tab] 1 each PO DAILY 06/24/13 [History] Magnesium Oxide 400 mg [Mag-Ox 400] 400 mg PO DAILY 06/24/13 [History] Simvastatin 10 mg PO HS 05/26/16 [History] Glimepiride 4 mg [Amaryl 4 mg] 2 mg PO BID 11/01/16 [History] Calcium Carbonate/Vitamin D3 [Calcium 1,000 + D3 Caplet] 1,500 mg PO DAILY 11/03 [History] Docusate Sodium [Stool Softener] 200 mg PO HS 11/03/16 [History] Lisinopril 10 mg [Zestril 10 MG] 10 mg PO DAILY 11/03/16 [History] Metformin HCl 500 mg [Glucophage 500 MG] 250 mg PO DAILY 11/03/16 [History ] Hx Tetanus, Diphtheria Vaccination/Date Given: No Hx Influenza Vaccination/Date Given: Yes Hx Pneumococcal Vaccination/Date Given: Yes Immunizations Up to Date: Yes - Review of Systems Constitutional: Chills Abdominal/Gastrointestinal: Abdominal Pain, Nausea Genitourinary Symptoms: Frequency, Urgency All Other Systems: Reviewed and Negative - Past Medical History Pertinent Past Medical History: Yes Neurological History: No Pertinent History ENT History: Cataracts Cardiac History: Other Respiratory History: Bronchitis Endocrine Medical History: Diabetes Type II Musculoskeletal History: Osteoarthritis GI Medical History: Diverticulitis History: Kidney Cancer Psycho-Social History: No Pertinent History Female Reproductive Disorders: No Pertinent History Other Medical History: OPEN HEART SURGERY 2002, GALLBLADDER REMOVED; COLON SURGERIES, 1 KIDNEY, APPENDICITIS; - Past Surgical History Past Surgical History: Yes Neuro Surgical History: No Pertinent History Cardiac: CABG Respiratory: No Pertinent History Gastrointestinal: Appendectomy, Cholecystectomy, Colon Resection, Other Genitourinary: Kidney Surgery Musculoskeletal: Orthopedic Surgery Female Surgical History: Hysterectomy Other Surgical History: Ruptured colon, kidney removed, right elbow, bilateral cataract surgery - Social History Smoking Status: Never smoker Exposure to second hand smoke: Yes Alcohol Use: None Drug Use: none Patient Lives Alone: No Significant Family History: no pertinent family hx - Female History Hx Now: No - Nursing Vital Signs Nursing Vital Signs: Initial Vital Signs Temperature 98.9 F 03/13/18 18:41 Pulse Rate 71 03/13/18 18:41 Respiratory Rate 18 03/13/18 18:41 Blood Pressure 165/59 03/13/18 18:41 O2 Sat by Pulse Oximetry 97 03/13/18 18:41 Pain Scale Pain Intensity 5 - Physical Exam General Appearance: no apparent distress Eye Exam: eyes nml inspection Ears, Nose, Throat Exam: normal ENT inspection Neck Exam: normal inspection, non-tender Respiratory Exam: normal breath sounds, lungs clear Cardiovascular Exam: regular rate/rhythm, normal heart sounds, normal peripheral pulses, No murmur Gastrointestinal/Abdomen Exam: soft, normal bowel sounds, tenderness (diffuse, bilateral lower abdomen) Back Exam: normal inspection, CVA tenderness (bilateral) Extremity Exam: normal inspection, other (right elbow: chronic deformity) Neurologic Exam: alert, oriented x 3 Skin Exam: normal color, warm, dry, No rash Lymphatic Exam: No adenopathy SpO2 Interpretation: normal SpO2: 97 Oxygen Delivery: Room Air - Course Nursing assessment & vital signs reviewed: Yes - CT Exams Abdomen/Pelvis CT Interpretation: Tele-radiologist Report, Other (mild distal sigmoid diverticulitis, no complications) Ordered Tests: Active Orders 24 hr Category Date Time Status IV Insertion STAT Care 03/13/18 19:03 Active ABDOMEN AND PELVIS W/0 CONTRAS [CT] Stat Exams 03/13/18 19:04 Taken CBC W DIFF Stat Lab 03/13/18 19:16 Completed CMP Stat Lab 03/13/18 19:16 Completed LIPASE Stat Lab 03/13/18 19:16 Completed Lactic Acid Stat Lab 03/13/18 19:20 Completed UA W/ MICROSCOPIC Stat Lab 03/13/18 19:20 Completed Medication Summary Generic Name Dose Route Start Last Admin Trade Name Freq PRN Reason Stop Dose Admin Sodium Chloride 1,000 mls @ 100 mls/hr 03/13/18 19:15 03/13/18 19:48 Sodium Chloride 0.9% 1000 Ml IV 04/12/18 19:14 100 mls/hr .Q10H GIL Administration Levofloxacin 500 mg 03/13/18 20:56 Levofloxacin 500 Mg Tablet PO 03/13/18 20:57 STAT ONE Metronidazole 500 mg 03/13/18 20:56 Flagyl 500 Mg PO 03/13/18 20:57 STAT ONE Lab/Rad Data: Laboratory Result Diagrams 03/13/18 19:16 03/13/18 19:16 Laboratory Results 03/13/18 03/13/18 03/13/18 Range/Units 19:20 19:20 19:16 WBC (4.0-10.5) K/mm3 RBC (4.1-5.4) M/mm3 Hgb (12.0-16.0) gm/dl Hct (35-47) % MCV (78-100) fl MCH (26-32) pg MCHC (32-36) g/dl RDW (11.5-14.0) % Plt Count (150-450) K/mm3 MPV (6-9.5) fl Gran % (36.0-66.0) % Eos # (Auto) (0-0.5) Absolute Lymphs (auto) (1.0-4.6) Absolute Monos (auto) (0.0-1.3) Lymphocytes % (24.0-44.0) % Monocytes % (0.0-12.0) % Eosinophils % (0.00-5.0) % Basophils % (0.0-0.4) % Absolute Granulocytes (1.4-6.9) Basophils # (0-0.4) Sodium 140 (137-145) mmol/L Potassium 4.3 (3.5-5.1) mmol/L Chloride 106 (98-107) mmol/L Carbon Dioxide 23 (22-30) mmol/L Anion Gap 15.3 H (5-15) MEQ/L BUN 25 H (7-17) mg/dL Creatinine 1.62 H (0.52-1.04) mg/dL Estimated GFR 31.9 ML/MIN Glucose 154 H (74-106) mg/dL Lactic Acid 1.7 (0.4-2.0) Calcium 10.7 H (8.4-10.2) mg/dL Total Bilirubin 0.90 (0.2-1.3) mg/dL AST 20 (14-36) U/L ALT 16 (0-35) U/L Alkaline Phosphatase 74 (38-126) U/L Serum Total Protein 6.3 (6.3-8.2) g/dL Albumin 3.8 (3.5-5.0) g/dL Lipase 195 (23-300) U/L Ur Collection Type VOID Urine Color YELLOW (YELLOW) Urine Appearance SLIGHTLY CLOUDY (CLEAR) Urine pH 8.0 (5-6) Ur Specific [place] 1.010 (1.005-1.025) Urine Protein NEGATIVE (Negative) Urine Ketones NEGATIVE (NEGATIVE) Urine Blood NEGATIVE (0-5) Jeff/ul Urine Nitrite NEGATIVE (NEGATIVE) Urine Bilirubin NEGATIVE (NEGATIVE) Urine Urobilinogen NORMAL (0-1) mg/dL Ur Leukocyte Esterase TRACE (NEGATIVE) Urine Microscopic RBC 0-2 (0-2) /HPF Urine Microscopic WBC 0-2 (0-5) /HPF Ur Epithelial Cells FEW (FEW) /HPF Amorphous Crystals MANY (NEGATIVE) /HPF Urine Bacteria FEW (NEGATIVE) /HPF Urine Mucus SLIGHT (NEGATIVE) /HPF Urine Culture Reflexed NO (NO) Urine Glucose 100 (NEGATIVE) mg/dL Specimen Received 03/13/18 1900 03/13/18 Range/Units 19:16 WBC 9.6 (4.0-10.5) K/mm3 RBC 4.09 L (4.1-5.4) M/mm3 Hgb 13.4 (12.0-16.0) gm/dl Hct 39.4 (35-47) % MCV 96.3 (78-100) fl MCH 32.7 H (26-32) pg MCHC 34.0 (32-36) g/dl RDW 13.2 (11.5-14.0) % Plt Count 163 (150-450) K/mm3 MPV 9.4 (6-9.5) fl Gran % 58.1 (36.0-66.0) % Eos # (Auto) 0.16 (0-0.5) Absolute Lymphs (auto) 2.79 (1.0-4.6) Absolute Monos (auto) 1.03 (0.0-1.3) Lymphocytes % 29.2 (24.0-44.0) % Monocytes % 10.8 (0.0-12.0) % Eosinophils % 1.7 (0.00-5.0) % Basophils % 0.2 (0.0-0.4) % Absolute Granulocytes 5.55 (1.4-6.9) Basophils # 0.02 (0-0.4) Sodium (137-145) mmol/L Potassium (3.5-5.1) mmol/L Chloride (98-107) mmol/L Carbon Dioxide (22-30) mmol/L Anion Gap (5-15) MEQ/L BUN (7-17) mg/dL Creatinine (0.52-1.04) mg/dL Estimated GFR ML/MIN Glucose (74-106) mg/dL Lactic Acid (0.4-2.0) Calcium (8.4-10.2) mg/dL Total Bilirubin (0.2-1.3) mg/dL AST (14-36) U/L ALT (0-35) U/L Alkaline Phosphatase (38-126) U/L Serum Total Protein (6.3-8.2) g/dL Albumin (3.5-5.0) g/dL Lipase (23-300) U/L Ur Collection Type Urine Color (YELLOW) Urine Appearance (CLEAR) Urine pH (5-6) Ur Specific [place] (1.005-1.025) Urine Protein (Negative) Urine Ketones (NEGATIVE) Urine Blood (0-5) Jeff/ul Urine Nitrite (NEGATIVE) Urine Bilirubin (NEGATIVE) Urine Urobilinogen (0-1) mg/dL Ur Leukocyte Esterase (NEGATIVE) Urine Microscopic RBC (0-2) /HPF Urine Microscopic WBC (0-5) /HPF Ur Epithelial Cells (FEW) /HPF Amorphous Crystals (NEGATIVE) /HPF Urine Bacteria (NEGATIVE) /HPF Urine Mucus (NEGATIVE) /HPF Urine Culture Reflexed (NO) Urine Glucose (NEGATIVE) mg/dL Specimen Received - Progress Progress: improved Progress Note: 03/13/18 20:59 Pt has been stable, no severe pain, or distress, no fever, nausea. I called Dr Bran discussed her findings and current condition, he agreed to discharge her on Oral antibiotics, she is being started on Flagyl and Levaquin and discharged in good condition to follow up with her doctor in 2-3 days, return if severe pain, vomiting, or fever> 102 F. Discussed with : Zhanna Will see patient in: office Counseled pt/family regarding: lab results, diagnosis, need for follow-up, rad results - Departure Time of Disposition: 21:00 Departure Disposition: Home Clinical Impression: Diverticulitis Condition: Stable Critical Care Time: No Referrals: KAREN BRAN MD [Primary Care Provider] - Instructions: Diverticulitis (DC) Additional Instructions: Rest x 2-3 days, continue liquid diet, and follow up with your physician in 2-3 days, return if severe pain, bleeding, vomiting or fever> 102 F! Prescriptions: Levofloxacin [Levofloxacin 500 MG Tablet] 500 mg PO DAILY #10 tablet Metronidazole 500 mg [Flagyl 500 MG] 500 mg PO TID #30 tablet
[2018-03-13] MEDS ORDERED: Sodium Chloride 0.9% 1000 ML 1,000 ML IV SCH (19:15)
[2018-03-13 19:28] LABS: BASOPHIL % 0.2 % (0.0-0.4); Basophil (Absolute #) 0.02 (0-0.4); Eosinophil % 1.7 % (0.00-5.0); Eosinophil (Absolute #) 0.16 (0-0.5); Granulocyte Absolute (ANC) 5.55 (1.4-6.9); Granulocytes % 58.1 % (36.0-66.0); Hematocrit 39.4 % (35-47); Hemoglobin 13.4 gm/dl (12.0-16.0); Lymphocyte (Absolute #) 2.79 (1.0-4.6); Lymphocytes % 29.2 % (24.0-44.0); Mean Cell Volume 96.3 fl (78-100); Mean Platelet Volume 9.4 fl (6-9.5); Monocyte (Absolute #) 1.03 (0.0-1.3); Monocytes % 10.8 % (0.0-12.0); Platelet Count 163 K/mm3 (150-450); Red Blood Count 4.09 M/mm3 (4.1-5.4); Red Cell Distribution Width 13.2 % (11.5-14.0); White Blood Count 9.6 K/mm3 (4.0-10.5)
[2018-03-13 19:30] LABS: Mean Corpuscular Hemoglobin 32.7 pg (26-32)
[2018-03-13 19:36] LABS: ALBUMIN 3.8 g/dL (3.5-5.0); ANION GAP 15.3 MEQ/L (5-15); BILIRUBIN,TOTAL 0.9 mg/dL (0.2-1.3); Calcium 10.7 mg/dL (8.4-10.2); Creatinine 1 1.62 mg/dL (0.52-1.04); Potassium 4.3 mmol/L (3.5-5.1); Total Protein 6.3 g/dL (6.3-8.2)
[2018-03-13] MEDS ORDERED: Sodium Chloride 0.9% 1000 ML 1,000 ML ONE ×2 (19:38→21:06)
[2018-03-13 20:27] LABS: Appearance SLIGHTLY CLOUDY (CLEAR); Bacteria FEW /HPF (NEGATIVE); Bilirubin NEGATIVE (NEGATIVE); Blood NEGATIVE Ery/ul (0-5); Epithelial Cells FEW /HPF (FEW); Glucose 100 mg/dL (NEGATIVE); Ketones NEGATIVE (NEGATIVE); Leukocyte Esterase TRACE (NEGATIVE); Mucus SLIGHT /HPF (NEGATIVE); Nitrite NEGATIVE (NEGATIVE); Protein,Urine Dip NEGATIVE (Negative); RBC 0-2 /HPF (0-2); Urobilinogen NORMAL mg/dL (0-1); WBC 0-2 /HPF (0-5)
[2018-03-13 20:28] LABS: Amourphous Crystal MANY /HPF (NEGATIVE)
[2018-03-13] MEDS ORDERED: Flagyl 500 MG PO ONE (20:56)
[2018-03-13] MEDS ORDERED: Levofloxacin 500 MG Tablet PO ONE (20:56)
[2018-03-13] MEDS ORDERED: Flagyl 500 MG ONE (21:06)
[2018-03-13] MEDS ORDERED: Levofloxacin 500 MG Tablet ONE (21:06)
[2018-03-13 21:18] VITALS: BP 139/66; PULSE 64; O2SAT 94
--- NOTE | 2018-03-14 08:51 | XRAY ---
Indication: Lower abdominal pain. Multiple contiguous axial images obtained through the abdomen and pelvis without contrast as ordered. Comparison: December 22, 2011. Lung bases again demonstrates mild bibasilar atelectasis/scarring. No infiltrate or effusion. Heart remains borderline enlarged. Stable mediastinal and right hilar calcified nodes. Noncontrasted stomach and bowel loops appear nonobstructed. Again previous reported appendectomy, left nephrectomy, and hysterectomy. There is again mild diffuse scattered colonic fecal debris throughout, more than before. Also diffuse scattered colonic diverticulosis with new mild diverticulitis in the distal sigmoid colon/rectum. No free fluid/air. Stable hepatic/splenic calcified granulomas, right renal cysts, and small left lower quadrant ventral hernia again with herniated small bowel loops. Remaining liver, gallbladder, pancreas, spleen, adrenal glands, right kidney, right ureter, and bladder appear unremarkable for noncontrast exam. There remains moderate aortoiliac calcifications without AAA. Osseous structures again demonstrates osteopenia, moderate multilevel degenerative spondylosis, and bilateral L5 spondylolysis with grade 2 spondylolisthesis. New remote-appearing T12/L1 superior endplate fractures and left hip arthroplasty. Impression: 1. New distal sigmoid/rectal diverticulitis without complications. There remains diffuse colonic diverticulosis and fecal stasis without obstruction. 2. Stable small left lower quadrant ventral hernia with herniated small bowel loops. No obstruction/incarceration. 3. Stable right renal cysts and evidence for old granulomatous disease. 4. Stable multilevel degenerative spondylosis and bilateral L5 spondylolysis with grade 2 spondylolisthesis. New remote-appearing T12/L1 endplate fractures and left hip arthroplasty. CT DI 27.73
== END 2018-03-13 21:52 | disposition home or self-care (01) ==
LOC: ED 18:03
DX: K57.92 Diverticulitis of intestine, part unspecified, without perforation or abscess without bleeding (principal); E11.9 Type 2 diabetes mellitus without complications; Z79.4 Long term (current) use of insulin; Z85.528 Personal history of other malignant neoplasm of kidney; Z90.5 Acquired absence of kidney; M19.90 Unspecified osteoarthritis, unspecified site; Z79.899 Other long term (current) drug therapy
CPT/HCPCS: 36415; 74176; 80053; 81000; 83605; 83690; 85025; 96360; 96361; 99284; A9270-GY

== ENCOUNTER 2018-12-29 17:01 | Emergency (ER) | payer MEDICARE, BC ==
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
[2018-12-29] MEDS ORDERED: TORAdol 30 mg Injection IM ONE (18:04)
[2018-12-29] MEDS ORDERED: TORAdol 30 mg Injection ONE (18:18)
[2018-12-29 18:23] VITALS: BP 142/60; PULSE 66; O2SAT 98
--- NOTE | 2018-12-29 21:08 | XRAY ---
Indication: Pain. No known injury. Comparison: None 3 views of the right knee demonstrates mild tricompartmental degenerative changes, 1.9 cm posterior calcified Olmedo's cyst, and scattered vascular calcifications. No other bony, articular, or soft tissue abnormalities.
--- NOTE | 2018-12-29 21:10 | XRAY ---
Indication: Pain. No known injury. Comparison: None 2 views of the right hip demonstrates osteopenia, proximal thigh benign appearing soft tissue calcification, and left groin surgical clips. No other bony, articular, or soft tissue abnormalities.
== END 2018-12-29 18:42 | disposition home or self-care (01) ==
LOC: ED 17:01
DX: M25.551 Pain in right hip (principal); M25.562 Pain in left knee; M16.11 Unilateral primary osteoarthritis, right hip; I25.810 Atherosclerosis of coronary artery bypass graft(s) without angina pectoris; E78.00 Pure hypercholesterolemia, unspecified; I10 Essential (primary) hypertension; I25.2 Old myocardial infarction; J44.9 Chronic obstructive pulmonary disease, unspecified; E11.9 Type 2 diabetes mellitus without complications; M81.0 Age-related osteoporosis without current pathological fracture; Z90.49 Acquired absence of other specified parts of digestive tract
CPT/HCPCS: 73502; 73562; 96372; 99284; J1885

== ENCOUNTER 2019-10-02 11:57 | Observation (INO) | payer MEDICARE, BC ==
[2019-10-02] MEDS ORDERED: Colace 100 MG PO PRN (13:18)
[2019-10-02] MEDS ORDERED: Sodium Chloride 0.9% 1000 ML 1,000 ML IV STA (13:23)
[2019-10-02 13:46] LABS: Absolute Neutrophil Ct (ANC) 7.23 (1.4-6.9); BASOPHIL % 0.1 % (0.0-0.4); Basophil (Absolute #) 0.01 (0-0.4); Eosinophil % 0.2 % (0.00-5.0); Eosinophil (Absolute #) 0.02 (0-0.5); Hematocrit 42.9 % (35-47); Hemoglobin 14.2 gm/dl (12.0-16.0); Lymphocyte (Absolute #) 0.51 (1.0-4.6); Lymphocytes % 6.3 % (24.0-44.0); Mean Cell Volume 98.4 fl (78-100); Mean Corpuscular Hemoglobin 32.6 pg (26-32); Mean Corpuscular Hgb Concent. 33.1 g/dl (32-36); Mean Platelet Volume 9.3 fl (7.5-11.0); Monocyte (Absolute #) 0.32 (0.0-1.3); Neutrophil % 89.4 % (36.0-66.0); Platelet Count 135 K/mm3 (150-450); Red Blood Count 4.36 M/mm3 (4.1-5.4); White Blood Count 8.1 K/mm3 (4.0-10.5)
[2019-10-02] MEDS: MAG-OX 400 PO SCH (13:56)
[2019-10-02] MEDS: Calcium 500MG W/Vit D Tablet PO SCH (13:56)
[2019-10-02] MEDS: hydroDIURIL 25 MG PO SCH (13:57)
[2019-10-02] MEDS: ECOTRIN 81 MG PO SCH (13:57)
[2019-10-02] MEDS: SYNTHROID 75 MCG PO SCH (13:57)
[2019-10-02] MEDS: NORVASC 5 MG PO SCH (13:57)
[2019-10-02] MEDS: Zestril 20 MG PO SCH (13:57)
[2019-10-02] MEDS: Glucophage 500 MG PO SCH (13:57)
[2019-10-02] MEDS: Toprol Xl 50 MG PO SCH (13:57)
[2019-10-02] MEDS: Sodium Chloride 0.9% 1000 ML 1,000 ML IV SCH (13:58)
[2019-10-02 14:11] LABS: ALBUMIN 4.2 g/dL (3.5-5.0); ANION GAP 14.9 MEQ/L (5-15); BILIRUBIN,TOTAL 1.1 mg/dL (0.2-1.3); Calcium 10.6 mg/dL (8.4-10.2); Creatinine 1 1.11 mg/dL (0.52-1.04); Potassium 4.2 mmol/L (3.5-5.1); Total Protein 7.3 g/dL (6.3-8.2)
[2019-10-02 14:19] LABS: INFLUENZA A NEGATIVE (NEGATIVE); INFLUENZA B NEGATIVE (NEGATIVE); RESPIRATORY SYNCTIAL VIRUS NEGATIVE (Negative)
--- NOTE | 2019-10-02 14:20 | XRAY ---
Indication: Fever. Comparison: July 25, 2017. PA/lateral chest again demonstrates minimal bilateral midlung fibrosis/scarring and focal eventration of the right hemidiaphragm. No focal infiltrate, consolidation, or large effusion. Heart is not enlarged again demonstrating CABG surgery. Stable aortic calcifications. Bony thorax intact again with osteopenia, degenerative changes, scoliosis, old T12/L1 compression fractures, and old right femoral head fracture. Impression: Stable nonacute chest with chronic features.
[2019-10-02 14:34] LABS: Appearance SLIGHTLY CLOUDY (CLEAR); Bilirubin NEGATIVE (NEGATIVE); Blood NEGATIVE Ery/ul (0-5); Epithelial Cells RARE /HPF (FEW); Glucose 150 mg/dL (NEGATIVE); Ketones NEGATIVE (NEGATIVE); Leukocyte Esterase NEGATIVE (NEGATIVE); Mucus SLIGHT /HPF (NEGATIVE); Nitrite NEGATIVE (NEGATIVE); Protein,Urine Dip NEGATIVE (Negative); Specific Gravity 1.026 (1.005-1.025); Urobilinogen 2 mg/dL (0-1); WBC 0-2 /HPF (0-5)
[2019-10-02] MEDS: Amaryl 2 MG PO SCH (16:09)
[2019-10-02 16:22] LABS: Slide Review 1 YES
[2019-10-02] MEDS: ZOCOR 20MG PO SCH (21:29)
[2019-10-02] MEDS: Zestril 10 MG PO SCH (21:29)
[2019-10-03] MEDS: Calcium 500MG W/Vit D Tablet PO SCH (09:18)
[2019-10-03] MEDS: ECOTRIN 81 MG PO SCH (09:18)
[2019-10-03] MEDS: hydroDIURIL 25 MG PO SCH (09:19)
[2019-10-03] MEDS: Toprol Xl 50 MG PO SCH (09:20)
[2019-10-03] MEDS: Zestril 20 MG PO SCH (09:20)
[2019-10-03] MEDS: MAG-OX 400 PO SCH (09:20)
[2019-10-03] MEDS: SYNTHROID 75 MCG PO SCH (09:20)
[2019-10-03] MEDS: NORVASC 5 MG PO SCH (09:20)
[2019-10-03] MEDS: Glucophage 500 MG PO SCH (09:21)
[2019-10-03] MEDS: Amaryl 2 MG PO SCH ×2 (09:21→17:40)
[2019-10-03] MEDS ORDERED: NON-FORMULARY ITEM (Lisinopril/Hydrochlorothiazide [Lisinopril-Hctz 20-12.5 Mg Tab] 1 EACH PO SCH (10:00)
[2019-10-03] MEDS ORDERED: VITAMIN D3 PO SCH (10:00)
[2019-10-03] MEDS ORDERED: CALCIUM CARBONATE PO SCH (10:00)
[2019-10-03] MEDS ORDERED: NON-FORMULARY ITEM (Amlodipine Besylate 10 Mg [Norvasc 10 Mg] 10 MG) PO SCH (10:00)
[2019-10-03] MEDS: Sodium Chloride 0.9% 1000 ML 1,000 ML IV SCH (11:44)
--- NOTE | 2019-10-03 11:54 | PCM.DS ---
Discharge Summary Date of Admission: 10/02/19 12:07 Admitting Physician: KAREN BRAN Primary Care Provider: KAREN BRAN Allergies Allergies cefaclor [From Ceclor] Allergy (Intermediate, Verified 12/29/18 17:16) Rash Penicillins Allergy (Intermediate, Verified 12/29/18 17:16) Rash Sulfa (Sulfonamide Antibiotics) Allergy (Intermediate, Verified 12/29/18 17:16) Rash atorvastatin [From Lipitor] Adverse Reaction (Verified 12/29/18 17:16) carvedilol [From Coreg] Adverse Reaction (Verified 12/29/18 17:16) rosuvastatin [From Crestor] Adverse Reaction (Verified 12/29/18 17:16) Hospital Summary - Hospital Course Hospital Course: Chief Complaint Diagnosis Dehydration Allergies Allergy/AdvReac Type Severity Reaction Status Date / Time cefaclor [From Ceclor] Allergy Intermediate Rash Verified 12/29/18 17:16 Penicillins Allergy Intermediate Rash Verified 12/29/18 17:16 Sulfa (Sulfonamide Allergy Intermediate Rash Verified 12/29/18 17:16 Antibiotics) atorvastatin [From Lipitor] AdvReac Verified 12/29/18 17:16 carvedilol [From Coreg] AdvReac Verified 12/29/18 17:16 rosuvastatin [From Crestor] AdvReac Verified 12/29/18 17:16 Vital Signs (Last 24 hours) Temp Pulse Resp BP Pulse Ox 10/03/19 11:25 98.9 F 63 18 128/63 92 L 10/03/19 06:53 98.8 F 58 L 18 123/55 92 L 10/03/19 04:00 98.6 F 62 18 126/59 95 10/03/19 00:16 99.8 F 68 20 129/58 96 10/02/19 20:00 98.3 F 83 22 153/71 97 10/02/19 16:00 97.7 F 73 22 162/67 93 L 10/02/19 14:55 98.4 F 73 10/02/19 12:47 97.9 F 78 24 158/67 95 10/02/19 12:07 97.9 F 78 24 158/67 95 Current Medications Generic Name Dose Route Start Last Admin Trade Name Freq PRN Reason Stop Dose Admin Amlodipine Besylate 10 mg 10/02/19 14:00 10/03/19 09:20 Norvasc 5 Mg PO 11/01/19 13:59 10 mg DAILY GIL Administration Aspirin 162 mg 10/02/19 14:00 10/03/19 09:18 Ecotrin 81 Mg PO 11/01/19 13:59 162 mg DAILY GIL Administration Calcium Carbonate 3 tab 10/02/19 14:00 10/03/19 09:18 Calcium 500mg W/Vit D Tablet PO 11/01/19 13:59 3 tab DAILY GIL Administration Docusate Sodium 200 mg 10/02/19 13:18 Colace 100 Mg PO 11/01/19 13:17 HSPRN PRN CONSTIPATION Glimepiride 2 mg 10/02/19 17:00 10/03/19 09:21 Amaryl 2 Mg PO 11/01/19 16:59 Not Given BIDWM GIL Hydrochlorothiazide 12.5 mg 10/02/19 14:00 10/03/19 09:19 Hydrodiuril 25 Mg PO 11/01/19 13:59 12.5 mg DAILY GIL Administration Sodium Chloride 1,000 mls @ 50 mls/hr 10/02/19 14:30 10/03/19 11:44 Sodium Chloride 0.9% 1000 Ml IV 11/01/19 14:29 50 mls/hr .Q20H GIL Administration Levothyroxine Sodium 75 mcg 10/02/19 14:00 10/03/19 09:20 Synthroid 75 Mcg PO 11/01/19 13:59 75 mcg DAILY GIL Administration Lisinopril 10 mg 10/02/19 22:00 10/02/19 21:29 Zestril 10 Mg PO 11/01/19 21:59 10 mg HS GIL Administration Lisinopril 20 mg 10/02/19 14:00 10/03/19 09:20 Zestril 20 Mg PO 11/01/19 13:59 20 mg DAILY GIL Administration Magnesium Oxide 400 mg 10/02/19 14:00 10/03/19 09:20 Mag-Ox 400 PO 11/01/19 13:59 400 mg DAILY GIL Administration Metformin HCl 500 mg 10/02/19 14:00 10/03/19 09:21 Glucophage 500 Mg PO 11/01/19 13:59 Not Given BREAKFAST GIL Metoprolol Succinate 50 mg 10/02/19 14:00 10/03/19 09:20 Toprol Xl 50 Mg PO 11/01/19 13:59 50 mg DAILY GIL Administration Simvastatin 20 mg 10/02/19 22:00 10/02/19 21:29 Zocor 20mg PO 11/01/19 21:59 20 mg HS GIL Administration Discontinued Medications Generic Name Dose Route Start Last Admin Trade Name Freq PRN Reason Stop Dose Admin Sodium Chloride 1,000 mls @ 999 mls/hr 10/02/19 13:23 10/02/19 13:58 Sodium Chloride 0.9% 1000 Ml IV 10/02/19 14:23 999 mls/hr .Q1H1M STA Administration Intake & Output (Last 24 hours) 09/30/19 10/01/19 10/02/19 10/03/19 11:59 11:59 11:59 11:59 Intake Total 3370 Output Total 1100 Balance 2270 Weight 74.5 kg Microbiology Results (Last 24 hours) 10/02/19 13:56 Urine, Void Urine Culture - Preliminary NO GROWTH TO DATE Laboratory Results (Last 24 hours) 10/02/19 10/02/19 10/02/19 13:56 13:44 13:44 WBC RBC Hgb Hct MCV MCH MCHC RDW Plt Count MPV Gran % Eos # (Auto) Absolute Lymphs (auto) Absolute Monos (auto) Lymphocytes % Monocytes % Eosinophils % Basophils % Absolute Granulocytes Basophils # Sodium Potassium Chloride Carbon Dioxide Anion Gap BUN Creatinine Estimated GFR Glucose Hemoglobin A1c 6.48 H Calcium Total Bilirubin AST ALT Alkaline Phosphatase Serum Total Protein Albumin Urine Color ALEKSEY Urine Appearance SLIGHTLY CLOUDY Urine pH 5.0 Ur Specific Wyatt 1.026 Urine Protein NEGATIVE Urine Ketones NEGATIVE Urine Blood NEGATIVE Urine Nitrite NEGATIVE Urine Bilirubin NEGATIVE Urine Urobilinogen 2 Ur Leukocyte Esterase NEGATIVE Urine WBC (Auto) 0-2 Urine RBC (Auto) 3-5 U Epithel Cells (Auto) RARE Urine Bacteria (Auto) NONE Urine Mucus (Auto) SLIGHT Urine Culture Reflexed YES Urine Glucose 150 Influenza Type A Ag NEGATIVE Influenza Type B Ag NEGATIVE RSV (PCR) NEGATIVE Slides for Path Review 10/02/19 10/02/19 13:44 13:44 WBC 8.1 RBC 4.36 Hgb 14.2 Hct 42.9 MCV 98.4 MCH 32.6 H MCHC 33.1 RDW 13.0 Plt Count 135 L MPV 9.3 Gran % 89.4 H Eos # (Auto) 0.02 Absolute Lymphs (auto) 0.51 L Absolute Monos (auto) 0.32 Lymphocytes % 6.3 L Monocytes % 4.0 Eosinophils % 0.2 Basophils % 0.1 Absolute Granulocytes 7.23 H Basophils # 0.01 Sodium 140 Potassium 4.2 Chloride 104 Carbon Dioxide 25 Anion Gap 14.9 BUN 30 H Creatinine 1.11 H Estimated GFR 49.2 Glucose 209 H Hemoglobin A1c Calcium 10.6 H Total Bilirubin 1.10 AST 26 ALT 18 Alkaline Phosphatase 82 Serum Total Protein 7.3 Albumin 4.2 Urine Color Urine Appearance Urine pH Ur Specific Wyatt Urine Protein Urine Ketones Urine Blood Urine Nitrite Urine Bilirubin Urine Urobilinogen Ur Leukocyte Esterase Urine WBC (Auto) Urine RBC (Auto) U Epithel Cells (Auto) Urine Bacteria (Auto) Urine Mucus (Auto) Urine Culture Reflexed Urine Glucose Influenza Type A Ag Influenza Type B Ag RSV (PCR) Slides for Path Review YES Orders (Last 24 hours) Category Date Time Status Accucheck ACHS Care 10/02/19 13:[address] in Observation ROUTINE Care 10/02/19 13:23 Active Telemetry q4h Care 10/02/19 13:32 Active Cardio-Pulmonary Rehab .as ordered Cons 10/02/19 12:46 Active Real Estate Coordinator/Discharge Plan ROUTINE Cons 10/02/19 13:06 Active 1800 Calorie ADA Diet 10/02/19 Dinner Active Nutritional Admission Screen Diet 10/02/19 13:06 Active CHEST 2 VIEWS (PA AND LAT) Stat Exams 10/02/19 14:09 Completed CBC W DIFF Stat Lab 10/02/19 13:44 Completed CMP Stat Lab 10/02/19 13:44 Completed CULTURE,URINE Stat Lab 10/02/19 13:56 Results HEMOGLOBIN A1C Urgent Lab 10/02/19 13:44 Completed Respiratory Panel Stat Lab 10/02/19 13:44 Completed UA W/RFX UR CULTURE Stat Lab 10/02/19 13:56 Completed Amlodipine Besylate 5 mg [Norvasc 5 mg] Med 10/02/19 14:00 Active 10 mg PO DAILY Aspirin EC 81 mg [Ecotrin 81 mg] Med 10/02/19 14:00 Active 162 mg PO DAILY Calcium Carb/Vitamin D 500 mg* [Calcium 500MG W/Vit D Med 10/02/19 14:00 Active Tablet] 3 tab PO DAILY Docusate Sodium 100 mg [Colace 100 MG] Med 10/02/19 13:18 Active 200 mg PO HSPRN PRN Glimepiride 2 mg [Amaryl 2 MG] Med 10/02/19 17:00 Active 2 mg PO BIDWM Hydrochlorothiazide 25 mg [hydroDIURIL 25 MG] Med 10/02/19 14:00 Active 12.5 mg PO DAILY Levothyroxine Sodium 75 Mcg [Synthroid 75 Mcg] Med 10/02/19 14:00 Active 75 mcg PO DAILY Lisinopril 10 mg [Zestril 10 MG] Med 10/02/19 22:00 Active 10 mg PO HS Lisinopril 20 mg [Zestril 20 MG] Med 10/02/19 14:00 Active 20 mg PO DAILY Magnesium Oxide 400 mg [Mag-Ox 400] Med 10/02/19 14:00 Active 400 mg PO DAILY Metformin HCl 500 mg [Glucophage 500 MG] Med 10/02/19 14:00 Active 500 mg PO BREAKFAST Metoprolol Succinate 50 mg [Toprol Xl 50 MG] Med 10/02/19 14:00 Active 50 mg PO DAILY NaCl 0.9% 1000 ml [Sodium Chloride 0.9% 1000 ML] 1,000 Med 10/02/19 14:30 Active ml IV 50 mls/hr NaCl 0.9% 1000 ml [Sodium Chloride 0.9% 1000 ML] 1,000 Med 10/02/19 13:23 Discontinued ml IV 999 mls/hr Simvastatin 20Mg [Zocor 20Mg] Med 10/02/19 22:00 Active 20 mg PO HS - Vitals & Intake/Output Vital Signs: Vital Signs Temperature 98.9 F 10/03/19 11:25 Pulse Rate 63 10/03/19 11:25 Respiratory Rate 18 10/03/19 11:25 Blood Pressure 128/63 10/03/19 11:25 O2 Sat by Pulse Oximetry 92 L 10/03/19 11:25 Intake & Output: Intake & Output 09/30/19 10/01/19 10/02/19 10/03/19 11:59 11:59 11:59 11:59 Intake Total 3370 Output Total 1100 Balance 2270 Weight 74.5 kg - Lab Result Diagrams: 10/02/19 13:44 10/02/19 13:44 Lab Results-Last 24 Hrs: Accuchecks Date 10/03/19 Date 10/03/19 Date 10/02/19 Time 11:30 Time 07:30 Time 16:30 Accucheck Value: 153 Accucheck Value: 61 Accucheck Value: 92 Accucheck Value: 136 Lab Results-Last 24 Hours 10/02/19 10/02/19 10/02/19 Range/Units 13:44 13:44 13:44 WBC 8.1 (4.0-10.5) K/mm3 RBC 4.36 (4.1-5.4) M/mm3 Hgb 14.2 (12.0-16.0) gm/dl Hct 42.9 (35-47) % MCV 98.4 (78-100) fl MCH 32.6 H (26-32) pg MCHC 33.1 (32-36) g/dl RDW 13.0 (11.5-14.0) % Plt Count 135 L (150-450) K/mm3 MPV 9.3 (7.5-11.0) fl Gran % 89.4 H (36.0-66.0) % Eos # (Auto) 0.02 (0-0.5) Absolute Lymphs (auto) 0.51 L (1.0-4.6) Absolute Monos (auto) 0.32 (0.0-1.3) Lymphocytes % 6.3 L (24.0-44.0) % Monocytes % 4.0 (0.0-12.0) % Eosinophils % 0.2 (0.00-5.0) % Basophils % 0.1 (0.0-0.4) % Absolute Granulocytes 7.23 H (1.4-6.9) Basophils # 0.01 (0-0.4) Sodium 140 (137-145) mmol/L Potassium 4.2 (3.5-5.1) mmol/L Chloride 104 (98-107) mmol/L Carbon Dioxide 25 (22-30) mmol/L Anion Gap 14.9 (5-15) MEQ/L BUN 30 H (7-17) mg/dL Creatinine 1.11 H (0.52-1.04) mg/dL Estimated GFR 49.2 ML/MIN Glucose 209 H (74-106) mg/dL Hemoglobin A1c (4.5-6.0) % Calcium 10.6 H (8.4-10.2) mg/dL Total Bilirubin 1.10 (0.2-1.3) mg/dL AST 26 (14-36) U/L ALT 18 (0-35) U/L Alkaline Phosphatase 82 (38-126) U/L Serum Total Protein 7.3 (6.3-8.2) g/dL Albumin 4.2 (3.5-5.0) g/dL Urine Color (YELLOW) Urine Appearance (CLEAR) Urine pH (5-6) Ur Specific Wyatt (1.005-1.025) Urine Protein (Negative) Urine Ketones (NEGATIVE) Urine Blood (0-5) Jeff/ul Urine Nitrite (NEGATIVE) Urine Bilirubin (NEGATIVE) Urine Urobilinogen (0-1) mg/dL Ur Leukocyte Esterase (NEGATIVE) Urine WBC (Auto) (0-5) /HPF Urine RBC (Auto) (0-2) /HPF U Epithel Cells (Auto) (FEW) /HPF Urine Bacteria (Auto) (NEGATIVE) /HPF Urine Mucus (Auto) (NEGATIVE) /HPF Urine Culture Reflexed (NO) Urine Glucose (NEGATIVE) mg/dL Influenza Type A Ag NEGATIVE (NEGATIVE) Influenza Type B Ag NEGATIVE (NEGATIVE) RSV (PCR) NEGATIVE (Negative) Slides for Path Review YES 10/02/19 10/02/19 Range/Units 13:44 13:56 WBC (4.0-10.5) K/mm3 RBC (4.1-5.4) M/mm3 Hgb (12.0-16.0) gm/dl Hct (35-47) % MCV (78-100) fl MCH (26-32) pg MCHC (32-36) g/dl RDW (11.5-14.0) % Plt Count (150-450) K/mm3 MPV (7.5-11.0) fl Gran % (36.0-66.0) % Eos # (Auto) (0-0.5) Absolute Lymphs (auto) (1.0-4.6) Absolute Monos (auto) (0.0-1.3) Lymphocytes % (24.0-44.0) % Monocytes % (0.0-12.0) % Eosinophils % (0.00-5.0) % Basophils % (0.0-0.4) % Absolute Granulocytes (1.4-6.9) Basophils # (0-0.4) Sodium (137-145) mmol/L Potassium (3.5-5.1) mmol/L Chloride (98-107) mmol/L Carbon Dioxide (22-30) mmol/L Anion Gap (5-15) MEQ/L BUN (7-17) mg/dL Creatinine (0.52-1.04) mg/dL Estimated GFR ML/MIN Glucose (74-106) mg/dL Hemoglobin A1c 6.48 H (4.5-6.0) % Calcium (8.4-10.2) mg/dL Total Bilirubin (0.2-1.3) mg/dL AST (14-36) U/L ALT (0-35) U/L Alkaline Phosphatase (38-126) U/L Serum Total Protein (6.3-8.2) g/dL Albumin (3.5-5.0) g/dL Urine Color ALEKSEY (YELLOW) Urine Appearance SLIGHTLY CLOUDY (CLEAR) Urine pH 5.0 (5-6) Ur Specific Wyatt 1.026 (1.005-1.025) Urine Protein NEGATIVE (Negative) Urine Ketones NEGATIVE (NEGATIVE) Urine Blood NEGATIVE (0-5) Jeff/ul Urine Nitrite NEGATIVE (NEGATIVE) Urine Bilirubin NEGATIVE (NEGATIVE) Urine Urobilinogen 2 (0-1) mg/dL Ur Leukocyte Esterase NEGATIVE (NEGATIVE) Urine WBC (Auto) 0-2 (0-5) /HPF Urine RBC (Auto) 3-5 (0-2) /HPF U Epithel Cells (Auto) RARE (FEW) /HPF Urine Bacteria (Auto) NONE (NEGATIVE) /HPF Urine Mucus (Auto) SLIGHT (NEGATIVE) /HPF Urine Culture Reflexed YES (NO) Urine Glucose 150 (NEGATIVE) mg/dL Influenza Type A Ag (NEGATIVE) Influenza Type B Ag (NEGATIVE) RSV (PCR) (Negative) Slides for Path Review Micro Results-Entire Visit: Microbiology 10/02/19 13:56 Urine Culture - Preliminary Urine, Void NO GROWTH TO DATE Accuchecks Date 10/03/19 Date 10/03/19 Date 10/02/19 Time 11:30 Time 07:30 Time 16:30 Accucheck Value: 153 Accucheck Value: 61 Accucheck Value: 92 Accucheck Value: 136 - Radiology Exams Ordered Rad Exams-Entire Visit: Radiology Procedures Category Date Time Status CHEST 2 VIEWS (PA AND LAT) Stat Exams 10/02/19 14:09 Completed Discharge Exam General Appearance: no apparent distress, alert Neurologic Exam: alert, oriented x 3, cooperative, normal mood/affect, nml cerebellar function, sensation nml, No motor deficits Eye Exam: PERRL, EOMI, eyes nml inspection Ears, Nose, Throat Exam: normal ENT inspection, pharynx normal, moist mucous membranes Neck Exam: normal inspection, non-tender, supple, full range of motion Respiratory Exam: normal breath sounds, lungs clear, No respiratory distress Cardiovascular Exam: regular rate/rhythm, normal heart sounds Gastrointestinal/Abdomen Exam: soft, No tenderness, No mass Pelvic Exam: deferred Rectal Exam: deferred Back Exam: normal inspection, normal range of motion, No CVA tenderness, No vertebral tenderness Extremity Exam: normal inspection, normal range of motion Skin Exam: normal color, warm, dry Final Diagnosis/Problem List - Final Discharge Diagnosis/Problem (1) Dehydration Current Visit: Yes Status: Acute Assessment & Plan: Chief Complaint Diagnosis Dehydration Allergies Allergy/AdvReac Type Severity Reaction Status Date / Time cefaclor [From Ceclor] Allergy Intermediate Rash Verified 12/29/18 17:16 Penicillins Allergy Intermediate Rash Verified 12/29/18 17:16 Sulfa (Sulfonamide Allergy Intermediate Rash Verified 12/29/18 17:16 Antibiotics) atorvastatin [From Lipitor] AdvReac Verified 12/29/18 17:16 carvedilol [From Coreg] AdvReac Verified 12/29/18 17:16 rosuvastatin [From Crestor] AdvReac Verified 12/29/18 17:16 Vital Signs (Last 24 hours) Temp Pulse Resp BP Pulse Ox 10/03/19 11:25 98.9 F 63 18 128/63 92 L 10/03/19 06:53 98.8 F 58 L 18 123/55 92 L 10/03/19 04:00 98.6 F 62 18 126/59 95 10/03/19 00:16 99.8 F 68 20 129/58 96 10/02/19 20:00 98.3 F 83 22 153/71 97 10/02/19 16:00 97.7 F 73 22 162/67 93 L 10/02/19 14:55 98.4 F 73 10/02/19 12:47 97.9 F 78 24 158/67 95 10/02/19 12:07 97.9 F 78 24 158/67 95 Current Medications Generic Name Dose Route Start Last Admin Trade Name Freq PRN Reason Stop Dose Admin Amlodipine Besylate 10 mg 10/02/19 14:00 10/03/19 09:20 Norvasc 5 Mg PO 11/01/19 13:59 10 mg DAILY GIL Administration Aspirin 162 mg 10/02/19 14:00 10/03/19 09:18 Ecotrin 81 Mg PO 11/01/19 13:59 162 mg DAILY GIL Administration Calcium Carbonate 3 tab 10/02/19 14:00 10/03/19 09:18 Calcium 500mg W/Vit D Tablet PO 11/01/19 13:59 3 tab DAILY GIL Administration Docusate Sodium 200 mg 10/02/19 13:18 Colace 100 Mg PO 11/01/19 13:17 HSPRN PRN CONSTIPATION Glimepiride 2 mg 10/02/19 17:00 10/03/19 09:21 Amaryl 2 Mg PO 11/01/19 16:59 Not Given BIDWM GIL Hydrochlorothiazide 12.5 mg 10/02/19 14:00 10/03/19 09:19 Hydrodiuril 25 Mg PO 11/01/19 13:59 12.5 mg DAILY GIL Administration Sodium Chloride 1,000 mls @ 50 mls/hr 10/02/19 14:30 10/03/19 11:44 Sodium Chloride 0.9% 1000 Ml IV 11/01/19 14:29 50 mls/hr .Q20H GIL Administration Levothyroxine Sodium 75 mcg 10/02/19 14:00 10/03/19 09:20 Synthroid 75 Mcg PO 11/01/19 13:59 75 mcg DAILY GIL Administration Lisinopril 10 mg 10/02/19 22:00 10/02/19 21:29 Zestril 10 Mg PO 11/01/19 21:59 10 mg HS GIL Administration Lisinopril 20 mg 10/02/19 14:00 10/03/19 09:20 Zestril 20 Mg PO 11/01/19 13:59 20 mg DAILY GIL Administration Magnesium Oxide 400 mg 10/02/19 14:00 10/03/19 09:20 Mag-Ox 400 PO 11/01/19 13:59 400 mg DAILY GIL Administration Metformin HCl 500 mg 10/02/19 14:00 10/03/19 09:21 Glucophage 500 Mg PO 11/01/19 13:59 Not Given BREAKFAST GIL Metoprolol Succinate 50 mg 10/02/19 14:00 10/03/19 09:20 Toprol Xl 50 Mg PO 11/01/19 13:59 50 mg DAILY GIL Administration Simvastatin 20 mg 10/02/19 22:00 10/02/19 21:29 Zocor 20mg PO 11/01/19 21:59 20 mg HS GIL Administration Discontinued Medications Generic Name Dose Route Start Last Admin Trade Name Freq PRN Reason Stop Dose Admin Sodium Chloride 1,000 mls @ 999 mls/hr 10/02/19 13:23 10/02/19 13:58 Sodium Chloride 0.9% 1000 Ml IV 10/02/19 14:23 999 mls/hr .Q1H1M STA Administration Intake & Output (Last 24 hours) 09/30/19 10/01/19 10/02/19 10/03/19 11:59 11:59 11:59 11:59 Intake Total 3370 Output Total 1100 Balance 2270 Weight 74.5 kg Microbiology Results (Last 24 hours) 10/02/19 13:56 Urine, Void Urine Culture - Preliminary NO GROWTH TO DATE Laboratory Results (Last 24 hours) 10/02/19 10/02/19 10/02/19 13:56 13:44 13:44 WBC RBC Hgb Hct MCV MCH MCHC RDW Plt Count MPV Gran % Eos # (Auto) Absolute Lymphs (auto) Absolute Monos (auto) Lymphocytes % Monocytes % Eosinophils % Basophils % Absolute Granulocytes Basophils # Sodium Potassium Chloride Carbon Dioxide Anion Gap BUN Creatinine Estimated GFR Glucose Hemoglobin A1c 6.48 H Calcium Total Bilirubin AST ALT Alkaline Phosphatase Serum Total Protein Albumin Urine Color ALEKSEY Urine Appearance SLIGHTLY CLOUDY Urine pH 5.0 Ur Specific Wyatt 1.026 Urine Protein NEGATIVE Urine Ketones NEGATIVE Urine Blood NEGATIVE Urine Nitrite NEGATIVE Urine Bilirubin NEGATIVE Urine Urobilinogen 2 Ur Leukocyte Esterase NEGATIVE Urine WBC (Auto) 0-2 Urine RBC (Auto) 3-5 U Epithel Cells (Auto) RARE Urine Bacteria (Auto) NONE Urine Mucus (Auto) SLIGHT Urine Culture Reflexed YES Urine Glucose 150 Influenza Type A Ag NEGATIVE Influenza Type B Ag NEGATIVE RSV (PCR) NEGATIVE Slides for Path Review 10/02/19 10/02/19 13:44 13:44 WBC 8.1 RBC 4.36 Hgb 14.2 Hct 42.9 MCV 98.4 MCH 32.6 H MCHC 33.1 RDW 13.0 Plt Count 135 L MPV 9.3 Gran % 89.4 H Eos # (Auto) 0.02 Absolute Lymphs (auto) 0.51 L Absolute Monos (auto) 0.32 Lymphocytes % 6.3 L Monocytes % 4.0 Eosinophils % 0.2 Basophils % 0.1 Absolute Granulocytes 7.23 H Basophils # 0.01 Sodium 140 Potassium 4.2 Chloride 104 Carbon Dioxide 25 Anion Gap 14.9 BUN 30 H Creatinine 1.11 H Estimated GFR 49.2 Glucose 209 H Hemoglobin A1c Calcium 10.6 H Total Bilirubin 1.10 AST 26 ALT 18 Alkaline Phosphatase 82 Serum Total Protein 7.3 Albumin 4.2 Urine Color Urine Appearance Urine pH Ur Specific Wyatt Urine Protein Urine Ketones Urine Blood Urine Nitrite Urine Bilirubin Urine Urobilinogen Ur Leukocyte Esterase Urine WBC (Auto) Urine RBC (Auto) U Epithel Cells (Auto) Urine Bacteria (Auto) Urine Mucus (Auto) Urine Culture Reflexed Urine Glucose Influenza Type A Ag Influenza Type B Ag RSV (PCR) Slides for Path Review YES Orders (Last 24 hours) Category Date Time Status Accucheck ACHS Care 10/02/19 13:[address] in Observation ROUTINE Care 10/02/19 13:23 Active Telemetry q4h Care 10/02/19 13:32 Active Cardio-Pulmonary Rehab .as ordered Cons 10/02/19 12:46 Active Real Estate Coordinator/Discharge Plan ROUTINE Cons 10/02/19 13:06 Active 1800 Calorie ADA Diet 10/02/19 Dinner Active Nutritional Admission Screen Diet 10/02/19 13:06 Active CHEST 2 VIEWS (PA AND LAT) Stat Exams 10/02/19 14:09 Completed CBC W DIFF Stat Lab 10/02/19 13:44 Completed CMP Stat Lab 10/02/19 13:44 Completed CULTURE,URINE Stat Lab 10/02/19 13:56 Results HEMOGLOBIN A1C Urgent Lab 10/02/19 13:44 Completed Respiratory Panel Stat Lab 10/02/19 13:44 Completed UA W/RFX UR CULTURE Stat Lab 10/02/19 13:56 Completed Amlodipine Besylate 5 mg [Norvasc 5 mg] Med 10/02/19 14:00 Active 10 mg PO DAILY Aspirin EC 81 mg [Ecotrin 81 mg] Med 10/02/19 14:00 Active 162 mg PO DAILY Calcium Carb/Vitamin D 500 mg* [Calcium 500MG W/Vit D Med 10/02/19 14:00 Active Tablet] 3 tab PO DAILY Docusate Sodium 100 mg [Colace 100 MG] Med 10/02/19 13:18 Active 200 mg PO HSPRN PRN Glimepiride 2 mg [Amaryl 2 MG] Med 10/02/19 17:00 Active 2 mg PO BIDWM Hydrochlorothiazide 25 mg [hydroDIURIL 25 MG] Med 10/02/19 14:00 Active 12.5 mg PO DAILY Levothyroxine Sodium 75 Mcg [Synthroid 75 Mcg] Med 10/02/19 14:00 Active 75 mcg PO DAILY Lisinopril 10 mg [Zestril 10 MG] Med 10/02/19 22:00 Active 10 mg PO HS Lisinopril 20 mg [Zestril 20 MG] Med 10/02/19 14:00 Active 20 mg PO DAILY Magnesium Oxide 400 mg [Mag-Ox 400] Med 10/02/19 14:00 Active 400 mg PO DAILY Metformin HCl 500 mg [Glucophage 500 MG] Med 10/02/19 14:00 Active 500 mg PO BREAKFAST Metoprolol Succinate 50 mg [Toprol Xl 50 MG] Med 10/02/19 14:00 Active 50 mg PO DAILY NaCl 0.9% 1000 ml [Sodium Chloride 0.9% 1000 ML] 1,000 Med 10/02/19 14:30 Active ml IV 50 mls/hr NaCl 0.9% 1000 ml [Sodium Chloride 0.9% 1000 ML] 1,000 Med 10/02/19 13:23 Discontinued ml IV 999 mls/hr Simvastatin 20Mg [Zocor 20Mg] Med 10/02/19 22:00 Active 20 mg PO HS Code(s): E86.0 - DEHYDRATION - Discharge Disposition: Home, Self-Care Condition: Stable Prescriptions: No Action Levothyroxine Sodium 75 Mcg [Synthroid 75 Mcg] 75 mcg PO DAILY Lisinopril/Hydrochlorothiazide [Lisinopril-Hctz 20-12.5 mg Tab] 1 each PO DAILY Amlodipine Besylate 10 mg [Norvasc 10 MG] 10 mg PO DAILY Magnesium Oxide 400 mg [Mag-Ox 400] 400 mg PO DAILY Simvastatin 20 mg PO HS Glimepiride 4 mg [Amaryl 4 mg] 2 mg PO BID Calcium Carbonate/Vitamin D3 [Calcium 1,000 + D3 Caplet] 1,500 mg PO DAILY Metformin HCl 500 mg [Glucophage 500 MG] 500 mg PO DAILY Docusate Sodium [Stool Softener] 200 mg PO HSPRN PRN PRN Reason: Constipation Lisinopril 10 mg [Zestril 10 MG] 10 mg PO HS Metoprolol Succinate 50 mg [Toprol Xl 50 MG] 50 mg PO DAILY Aspirin [Barron Aspirin EC] 2 tab PO DAILY Follow up with: KAREN BRAN MD [Primary Care Provider] - 1 Week
--- NOTE | 2019-10-03 12:03 | PCM.NOTE ---
Date and Time: 10/03/19 1201 Subjective Assessment: doing ok - Review of Systems Constitutional: No Fever, No Chills Eyes: No Symptoms Ears, Nose, & Throat: No Symptoms Respiratory: No Cough, No Short Of Breath Cardiac: No Chest Pain, No Edema, No Syncope Abdominal/Gastrointestinal: No Abdominal Pain, No Nausea, No Vomiting, No Diarrhea Genitourinary Symptoms: No Dysuria Musculoskeletal: No Back Pain, No Neck Pain Skin: No Rash Neurological: No Dizziness, No Focal Weakness, No Sensory Changes Psychological: No Symptoms Endocrine: No Symptoms Hematologic/Lymphatic: No Symptoms Immunological/Allergic: No Symptoms Objective Exam General Appearance: no apparent distress, alert Neurologic Exam: alert, oriented x 3, cooperative, normal mood/affect, nml cerebellar function, sensation nml, No motor deficits Skin Exam: normal color, warm, dry Eye Exam: PERRL, EOMI, eyes nml inspection Ears, Nose, Throat Exam: normal ENT inspection, pharynx normal, moist mucous membranes Neck Exam: normal inspection, non-tender, supple, full range of motion Respiratory Exam: normal breath sounds, lungs clear, No respiratory distress Cardiovascular Exam: regular rate/rhythm, normal heart sounds Gastrointestinal/Abdomen Exam: soft, No tenderness, No mass Extremity Exam: normal inspection, normal range of motion Back Exam: normal inspection, normal range of motion, No CVA tenderness, No vertebral tenderness Pelvic Exam: deferred Rectal Exam: deferred OBJECTIVE DATA Vital Signs: Vital Signs - 24 hr Temp Pulse Resp BP Pulse Ox 10/03/19 11:25 98.9 F 63 18 128/63 92 L 10/03/19 06:53 98.8 F 58 L 18 123/55 92 L 10/03/19 04:00 98.6 F 62 18 126/59 95 10/03/19 00:16 99.8 F 68 20 129/58 96 10/02/19 20:00 98.3 F 83 22 153/71 97 10/02/19 16:00 97.7 F 73 22 162/67 93 L 10/02/19 14:55 98.4 F 73 10/02/19 12:47 97.9 F 78 24 158/67 95 10/02/19 12:07 97.9 F 78 24 158/67 95 Pain Assessment - Last Documented Pain Intensity 0 Pain Scale Used 0-10 Pain Scale Intake and Output: Intake & Output 10/01/19 10/02/19 10/03/19 10/04/19 11:59 11:59 11:59 11:59 Intake Total 3370 Output Total 1100 Balance 2270 Weight 74.5 kg Lab Results: Accuchecks Date 10/03/1910/03/19 Date 10/02/19 Time 11:30 Time 07:30 Time 16:30 Accucheck Value: 153 Accucheck Value: 61 Accucheck Value: 92 Accucheck Value: 136 Lab Results-Last 24 Hours 10/02/19 10/02/19 10/02/19 Range/Units 13:44 13:44 13:44 WBC 8.1 (4.0-10.5) K/mm3 RBC 4.36 (4.1-5.4) M/mm3 Hgb 14.2 (12.0-16.0) gm/dl Hct 42.9 (35-47) % MCV 98.4 (78-100) fl MCH 32.6 H (26-32) pg MCHC 33.1 (32-36) g/dl RDW 13.0 (11.5-14.0) % Plt Count 135 L (150-450) K/mm3 MPV 9.3 (7.5-11.0) fl Gran % 89.4 H (36.0-66.0) % Eos # (Auto) 0.02 (0-0.5) Absolute Lymphs (auto) 0.51 L (1.0-4.6) Absolute Monos (auto) 0.32 (0.0-1.3) Lymphocytes % 6.3 L (24.0-44.0) % Monocytes % 4.0 (0.0-12.0) % Eosinophils % 0.2 (0.00-5.0) % Basophils % 0.1 (0.0-0.4) % Absolute Granulocytes 7.23 H (1.4-6.9) Basophils # 0.01 (0-0.4) Sodium 140 (137-145) mmol/L Potassium 4.2 (3.5-5.1) mmol/L Chloride 104 (98-107) mmol/L Carbon Dioxide 25 (22-30) mmol/L Anion Gap 14.9 (5-15) MEQ/L BUN 30 H (7-17) mg/dL Creatinine 1.11 H (0.52-1.04) mg/dL Estimated GFR 49.2 ML/MIN Glucose 209 H (74-106) mg/dL Hemoglobin A1c (4.5-6.0) % Calcium 10.6 H (8.4-10.2) mg/dL Total Bilirubin 1.10 (0.2-1.3) mg/dL AST 26 (14-36) U/L ALT 18 (0-35) U/L Alkaline Phosphatase 82 (38-126) U/L Serum Total Protein 7.3 (6.3-8.2) g/dL Albumin 4.2 (3.5-5.0) g/dL Urine Color (YELLOW) Urine Appearance (CLEAR) Urine pH (5-6) Ur Specific [place] (1.005-1.025) Urine Protein (Negative) Urine Ketones (NEGATIVE) Urine Blood (0-5) Jeff/ul Urine Nitrite (NEGATIVE) Urine Bilirubin (NEGATIVE) Urine Urobilinogen (0-1) mg/dL Ur Leukocyte Esterase (NEGATIVE) Urine WBC (Auto) (0-5) /HPF Urine RBC (Auto) (0-2) /HPF U Epithel Cells (Auto) (FEW) /HPF Urine Bacteria (Auto) (NEGATIVE) /HPF Urine Mucus (Auto) (NEGATIVE) /HPF Urine Culture Reflexed (NO) Urine Glucose (NEGATIVE) mg/dL Influenza Type A Ag NEGATIVE (NEGATIVE) Influenza Type B Ag NEGATIVE (NEGATIVE) RSV (PCR) NEGATIVE (Negative) Slides for Path Review YES 10/02/19 10/02/19 Range/Units 13:44 13:56 WBC (4.0-10.5) K/mm3 RBC (4.1-5.4) M/mm3 Hgb (12.0-16.0) gm/dl Hct (35-47) % MCV (78-100) fl MCH (26-32) pg MCHC (32-36) g/dl RDW (11.5-14.0) % Plt Count (150-450) K/mm3 MPV (7.5-11.0) fl Gran % (36.0-66.0) % Eos # (Auto) (0-0.5) Absolute Lymphs (auto) (1.0-4.6) Absolute Monos (auto) (0.0-1.3) Lymphocytes % (24.0-44.0) % Monocytes % (0.0-12.0) % Eosinophils % (0.00-5.0) % Basophils % (0.0-0.4) % Absolute Granulocytes (1.4-6.9) Basophils # (0-0.4) Sodium (137-145) mmol/L Potassium (3.5-5.1) mmol/L Chloride (98-107) mmol/L Carbon Dioxide (22-30) mmol/L Anion Gap (5-15) MEQ/L BUN (7-17) mg/dL Creatinine (0.52-1.04) mg/dL Estimated GFR ML/MIN Glucose (74-106) mg/dL Hemoglobin A1c 6.48 H (4.5-6.0) % Calcium (8.4-10.2) mg/dL Total Bilirubin (0.2-1.3) mg/dL AST (14-36) U/L ALT (0-35) U/L Alkaline Phosphatase (38-126) U/L Serum Total Protein (6.3-8.2) g/dL Albumin (3.5-5.0) g/dL Urine Color ALEKSEY (YELLOW) Urine Appearance SLIGHTLY CLOUDY (CLEAR) Urine pH 5.0 (5-6) Ur Specific [place] 1.026 (1.005-1.025) Urine Protein NEGATIVE (Negative) Urine Ketones NEGATIVE (NEGATIVE) Urine Blood NEGATIVE (0-5) Jeff/ul Urine Nitrite NEGATIVE (NEGATIVE) Urine Bilirubin NEGATIVE (NEGATIVE) Urine Urobilinogen 2 (0-1) mg/dL Ur Leukocyte Esterase NEGATIVE (NEGATIVE) Urine WBC (Auto) 0-2 (0-5) /HPF Urine RBC (Auto) 3-5 (0-2) /HPF U Epithel Cells (Auto) RARE (FEW) /HPF Urine Bacteria (Auto) NONE (NEGATIVE) /HPF Urine Mucus (Auto) SLIGHT (NEGATIVE) /HPF Urine Culture Reflexed YES (NO) Urine Glucose 150 (NEGATIVE) mg/dL Influenza Type A Ag (NEGATIVE) Influenza Type B Ag (NEGATIVE) RSV (PCR) (Negative) Slides for Path Review Radiology Exams: Radiology Procedures Category Date Time Status CHEST 2 VIEWS (PA AND LAT) Stat Exams 10/02/19 14:09 Completed Assessment/Plan (1) Dehydration Current Visit: Yes Status: Acute Code(s): E86.0 - DEHYDRATION
[2019-10-03] MEDS: Zestril 10 MG PO SCH (22:03)
[2019-10-03] MEDS: ZOCOR 20MG PO SCH (22:03)
[2019-10-03] MEDS ORDERED: Tums EX 750 MG PO PRN (23:26)
[2019-10-04] MEDS: Sodium Chloride 0.9% 1000 ML 1,000 ML IV SCH (04:53)
[2019-10-04 05:01] VITALS: PULSE 54; O2SAT 95
[2019-10-04] MEDS ORDERED: Tums EX 750 MG PO PRN (06:33)
[2019-10-04 07:10] VITALS: BP 123/60
[2019-10-04] MEDS: Amaryl 2 MG PO SCH (08:43)
[2019-10-04] MEDS: Glucophage 500 MG PO SCH (08:43)
[2019-10-04] MEDS: MAG-OX 400 PO SCH (09:31)
[2019-10-04] MEDS: ECOTRIN 81 MG PO SCH (09:31)
[2019-10-04] MEDS: NORVASC 5 MG PO SCH (09:31)
[2019-10-04] MEDS: hydroDIURIL 25 MG PO SCH (09:31)
[2019-10-04] MEDS: SYNTHROID 75 MCG PO SCH (09:32)
[2019-10-04] MEDS: Zestril 20 MG PO SCH (09:32)
[2019-10-04] MEDS: Calcium 500MG W/Vit D Tablet PO SCH (09:32)
[2019-10-04] MEDS ORDERED: Toprol-Xl 25MG Tablets PO SCH (10:00)
== END 2019-10-04 12:00 | disposition home or self-care (01) ==
LOC: MED SURG 12:07
PROVIDERS: ADMIT General Practice; ATTEND General Practice
DX: E86.0 Dehydration (principal); E11.65 Type 2 diabetes mellitus with hyperglycemia; R19.7 Diarrhea, unspecified; R42 Dizziness and giddiness; R11.10 Vomiting, unspecified; I10 Essential (primary) hypertension; E78.5 Hyperlipidemia, unspecified; Z79.899 Other long term (current) drug therapy
CPT/HCPCS: 36415; 71046; 80053; 81001; 82962; 83036; 85025; 87086; 87631; 93268; G0378; A9270-GY